=== PATIENT | male | born 1970 | race Caucasian/White ===

== ENCOUNTER 2018-07-08 16:49 | Inpatient (IN) | payer BC ==
[2018-07-08] MEDS ORDERED: Nicotine Inhaler* 10 MG AMP INH PRN (17:39)
[2018-07-08] MEDS ORDERED: Mouth Piece, Nicotine* 1 EACH CARTRIDGE INH PRN (17:47)
--- NOTE | 2018-07-08 17:54 | ED ---
Psychiatric Complaint - HPI Summary HPI Summary: A 48 y/o male presents to [facility] with a chief complaint of SI on 07/08/18. The patient is accompanied by family in the room. He reports holding a gun in his mouth. He is not sure what stopped him from continuing with his plan. He denies HI. He claims that he does not take medicine for his depression. He reports not sleeping well, stating that he barely got an hour of sleep. He also states that he has HTN, but does not take medication. He denies a Hx of DM. He denies visible or auditory hallucinations. He denies seeing a therapist and is unsure what triggered the event today. He report SI in the past with the same plan. He claims that he has been admitted before for previous suicide attempts. - History Of Current Complaint Chief Complaint: EDMentalHealth Time Seen by Provider: 07/08/18 17:23 Hx Obtained From: Patient Onset/Duration: Sudden Onset, Lasting Hours, Still Present Timing: Hours Severity Initially: Severe Severity Currently: Severe Character: Depressed Aggravating Factor(s): Nothing Alleviating Factor(s): Nothing Associated Signs And Symptoms: Positive: Sleep Disturbance. Negative: Hallucinating Related History: Positive For: Prior Psychiatric Issues Has Suicidal: Reports: Thoughts, With A Plan, Demonstrates Gesture, Has Prior Attempt(s) Has Homicidal: Denies: Thoughts - Allergies/Home Medications Allergies/Adverse Reactions: Allergies Allergy/AdvReac Type Severity Reaction Status Date / Time Seasonal Allergies Allergy Congestion Uncoded 07/08/18 16:59 PMH/Surg Hx/FS Hx/Imm Hx Endocrine/Hematology History: Denies: Hx Diabetes, Hx Thyroid Disease Cardiovascular History: Reports: Hx Hypertension Respiratory History: Denies: Hx Asthma, Hx Chronic Obstructive Pulmonary Disease (COPD) GI History: Denies: Hx Ulcer Psychiatric History: Reports: Hx Depression - Surgical History Surgery Procedure, Year, and Place: UMBILICAL HERNIA REPAIR 05/2012. LEFT WRIST SURGERY Infectious Disease History: No Infectious Disease History: Denies: Hx Hepatitis, Hx Human Immunodeficiency Virus (HIV), History Other Infectious Disease, Traveled Outside the [place] in Last 30 Days - Family History Known Family History: Negative: Cardiac Disease, Hypertension, Diabetes, Other - Psychiatric illness - Social History Alcohol Use: None Substance Use Type: Reports: None Smoking Status (MU): Never Smoked Tobacco Review of Systems Negative: Fever Psychological: Other - positive: SI Positive: Depressed. Negative: Other - Negative: HI, hallucinations All Other Systems Reviewed And Are Negative: Yes Physical Exam - Summary Physical Exam Summary: GENERAL: Patient is a well-developed and nourished M who is lying comfortable in the stretcher. Patient is not in any acute respiratory distress. HEAD AND FACE: Normocephalic EYES: PERRLA, EOMI x 2. EARS: Hearing grossly intact. MOUTH: Oropharynx within normal limits. NECK: Supple, trachea is midline, no adenopathy, no JVD, no carotid bruit. CHEST: Symmetric, no tenderness at palpation LUNGS: Clear to auscultation bilaterally. No wheezing or crackles. CVS: Regular rate and rhythm, S1 and S2 present, no murmurs or gallops appreciated. ABDOMEN: Soft, non-tender. Bowel sounds are normal. No abdominal abnormal pulsations. EXTREMITIES: Full ROM in all major joints, no edema, no cyanosis or clubbing. NEURO: Alert and oriented x 3. No acute neurological deficits. Speech is normal and follows commands. SKIN: Dry and warm PSYCH: Sad affect, SI, no HI, No visible or auditory hallucinations Triage Information Reviewed: Yes Vital Signs On Initial Exam: Initial Vitals Temp Pulse Resp BP Pulse Ox 97.8 F 112 18 196/110 98 07/08/18 16:52 07/08/18 16:52 07/08/18 16:52 07/08/18 16:52 07/08/18 16:52 Vital Signs Reviewed: Yes Diagnostics - Vital Signs Vital Signs Temp Pulse Resp BP Pulse Ox 07/08/18 16:52 97.8 F 112 18 196/110 98 - Laboratory Result Diagrams: 07/08/18 17:44 07/08/18 17:44 Lab Statement: Any lab studies that have been ordered have been reviewed, and results considered in the medical decision making process. Re-Evaluation - Re-Evaluation First Eval Re-Evaluation Time: 17:45 Change: Unchanged Comment: Cleared for MHE. Course/Dx - Course Course Of Treatment: A 48 y/o male presents to [facility] with a chief complaint of SI on 07/08/18. He reports holding a gun in his mouth. He is not sure what stopped him from continuing with his plan. Lab results obtained and WNL. In the ED course the patient was given Nicotine INH. The patient has been medically cleared for MHE. Dx: SI. This patient will be signed out to Dr. Weiss at shift change pending MHE. - Differential Dx/Clinical Impression Provider Diagnosis: Suicidal ideation Discharge - Sign-Out/Discharge Documenting (check all that apply): Sign-Out Patient Signing out patient TO: Lukasz Weiss - pending MHE - Discharge Plan Condition: Stable Referrals: No Primary Care Phys,NOPCP [Primary Care Provider] - - Billing Disposition and Condition Condition: STABLE - Attestation Statements Document Initiated by Scribe: Yes Documenting Scribe: William Sevilla Provider For Whom Scribe is Documenting (Include Credential): Fidelina Milligan MD Scribe Attestation: IWilliam scribed for Fidelina Milligan MD on 07/08/18 at 2135. Scribe Documentation Reviewed: Yes Provider Attestation: The documentation as recorded by the William escoto accurately reflects the service I personally performed and the decisions made by me, June Milligan MD Status of Scribe Document: Viewed
[2018-07-08 17:58] LABS: ABS Basophils 0.1 10^3/ul (0-0.2); ABS Eosinophils 0.2 10^3/ul (0-0.6); ABS Lymphocytes 1.1 10^3/ul (1.0-4.8); ABS Monocytes 0.4 10^3/ul (0-0.8); ABS Neutrophils 3.6 10^3/ul (1.5-7.7); ABS Nucleated RBC 0 10^3/ul; Eosinophil % 2.9 %; Hematocrit 47 % (42-52); Hemoglobin 15.6 g/dl (14.0-18.0); Lymphocyte % 20.9 %; Mean Corpuscular HGB Conc 34 g/dl (31-36); Mean Corpuscular Hemoglobin 28 pg (27-31); Mean Corpuscular Volume 83 fL (80-94); Mean Platelet Volume 8.1 fL (7.4-10.4); Nucleated Red Blood Cells % 0; Platelet Count 275 10^3/ul (150-450); Red Blood Count 5.59 10^6/ul (4.00-5.40); Red Cell Distribution Width 14 % (10.5-15); White Blood Count 5.3 10^3/ul (3.5-10.8)
[2018-07-08 18:05] LABS: Urine Appearance Clear; Urine Bilirubin Negative (Negative); Urine Blood Negative (Negative); Urine Color Colorless; Urine Glucose Negative (Negative); Urine Ketones Negative (Negative); Urine Nitrite Negative (Negative); Urine Protein Negative (Negative); Urine Specific Gravity 1.001 (1.010-1.030); Urine Urobilinogen Negative (Negative)
[2018-07-08 18:13] LABS: ALT 21 U/L (7-52); AST 24 U/L (13-39); Albumin 4.4 g/dL (3.2-5.2); Albumin/Globulin Ratio 1.3 (1-3); Alkaline Phosphatase 87 U/L (34-104); Anion Gap 8 mmol/L (2-11); Blood Urea Nitrogen 7 mg/dL (6-24); CO2 Carbon Dioxide 29 mmol/L (22-32); Calcium 9.6 mg/dL (8.6-10.3); Chloride 101 mmol/L (101-111); EGFR Non-African American 92.4 (>60); Globulin 3.3 g/dL (2-4); Glucose 119 mg/dL (70-100); Potassium 3.6 mmol/L (3.5-5.0); Sodium 138 mmol/L (135-145); Total Protein 7.7 g/dL (6.4-8.9)
[2018-07-08 18:22] LABS: Barbiturates Urine Screen None Detected (None Detect); Benzodiazepine Urine Screen None Detected (None Detect); Urine Cannabinoids Screen None Detected (None Detect)
[2018-07-08 18:33] LABS: Acetaminophen < 15 mcg/mL; Alcohol < 10 mg/dL (<10); Salicylate < 2.50 mg/dL (<30)
[2018-07-08 18:47] LABS: TSH (Thyroid Stimulating Horm) 1.22 mcIU/mL (0.34-5.60)
--- NOTE | 2018-07-08 22:11 | ED ---
Progress - Progress Note Progress Note: Receiving sign out from Dr. Milligan, pending MHE. Pt's family requests sleeping medication for the pt. He will be signed out to Dr. Milligan, pending transfer. - EKG/XRAY/CT EKG: nonspecific ST T wave chg Comments: 00:48: Tachycardic 110 bpm, nl axis, nl intervals Course/Dx - Course Course Of Treatment: Nurse's notes reviewed. Patient was signed out to me by Dr. Milligan pending mental health evaluation. Mental health evaluation was performed and it was elected that the patient would require admission. There are no beds here and so transfer arrangements will be made. Expected to transfer during the day shift. Patient is otherwise been stable throughout her shift. He signed back out to the oncoming ER physician who also happens to be Dr. Milligan. - Diagnoses Provider Diagnoses: Depression - Provider Notifications Discussed Care Of Patient With: Leydi Santacruz Time Discussed With Above Provider: 12:22 Instructed by Provider To: Transfer - Patient is an involuntary transfer, since beds are full at [facility] [place]. Discharge - Sign-Out/Discharge Documenting (check all that apply): Sign-Out Patient, Receiving Sign-Out Signing out patient TO: Fidelina Milligan Receiving patient FROM: Fidelina Milligan - Discharge Plan Condition: Fair Disposition: PSYCHIATRIC FACILITY-OTHER Referrals: No Primary Care Phys,NOPCP [Primary Care Provider] - - Billing Disposition and Condition Condition: FAIR Disposition: Psychiatric Facility Other - Attestation Statements Document Initiated by Scribe: Yes Documenting Scribe: Chari Loomis Provider For Whom Scribe is Documenting (Include Credential): Lukasz Weiss MD Scribe Attestation: Chari Yeung, scribed for Lukasz Weiss MD on 07/09/18 at 0405. Scribe Documentation Reviewed: Yes Provider Attestation: The documentation as recorded by the Chari escoto accurately reflects the service I personally performed and the decisions made by , Lukasz Weiss MD Status of Scribe Document: Viewed
[2018-07-09] MEDS ORDERED: traZODone TAB* 50 MG TAB PO ONE (00:31)
--- NOTE | 2018-07-09 07:20 | ED ---
Progress - Progress Note Progress Note: Patient was signed out to Dr. Fidelina Milligan via Dr. Lukasz Weiss, pending MHE and transfer, on shift change on 07/09/2018 at 0700. Home Medications Medication Instructions Recorded Confirmed Type NK [No Home Medications Reported] 12/06/13 07/09/18 History 1349 - SINUS TACHYCARDIA AT 110 BPM, T-WAVE CHANGES IN THE INFERIOR LEADS. - EKG/XRAY/CT EKG: nonspecific ST T wave chg Comments: 00:48: Tachycardic 110 bpm, nl axis, nl intervals - Consult/PCP Time Called: 00:00 Re-Evaluation - Re-Evaluation First Eval Re-Evaluation Time: 17:45 Change: Unchanged Comment: Cleared for MHE. Second Eval Re-Evaluation Time: 13:06 Change: Unchanged Comment: HOSPTIALIST, DR. DEENA GODINEZ CALLED TO INQUIRE ABOUT EKG. WILL ADMIT PATIENT TO [facility] ONCE EKG IS DONE AND CARDIAC WORKUP SINCE THERE IS NO BED AVAILABLE IN TELEMETRY UNIT. SHE WANTS TO RULE OUT PATIENT FOR ADMISSION IN [facility] ED, THEREFORE HE CAN BE TRANSFERRED TO FLEX/PSYCH. Third Eval Re-Evaluation Time: 14:27 Change: Unchanged Comment: SPOKE TO HOSPITALIST, DR. DEENA GODINEZ, WHO RECOMMENDS CHECKING TROPONINS. Fourth Eval Re-Evaluation Time: 19:00 Change: Unchanged Comment: DISCUSSED RESULTS AND PLAN WITH PATIENT. Course/Dx - Course Course Of Treatment: A 48 y/o male accompanied by family presents to the ED c/o suicidal ideation. According to the patient, he held a gun to his mouth, however , he is not sure why he stopped from continuing with his plan to commit suicide. He noted that he is unsure of what triggered his action today (2017). He stated that he has not been sleeping well, has hypertension, and has depression, but does not take any medication whatsoever. He denies any HI or any visual or auditory hallucinations. He has not seen a therapist. PMHx of SI with same plan, no DM. Patient noted that he has been admitted for previous suicidal attempts. Physical examination findings significant for sad affect, SI , no HI, no visible or auditory hallucinations. An EKG completed at 0048 revealed sinus tachycardia of 110 BPM, normal axis, normal intervals. Hematology , Chemistry, urinalysis and toxicology screens were done. No significant laboratory abnormalities were found except for elevated glucose at a value of 119 mg/dL. In the ED course, the patient received Desyrel, Catapres, and Nicotine. After MHE, patient care was discussed with psychiatrist, Dr. Leydi Santacruz, who recommended that patient be transferred, involuntarily due since beds at [facility] are at full capacity. As per settlement technician, pt was cleared by Dr. Leydi Santacruz, [facility], for SI. Patient care was also discussed with Dr. Eliud Awad, who accepted the patient to [facility] as there are beds available at this time. Hospitalist, Dr. Deena Godinez would like the patient to have a cardiac workup at [facility] ED as they do not have a room in the Telemetry Unit. Dr. Godinez would like to rule out patient in the ED so that he can be moved to [facility]. During re-evaluation, the patient exhibited a HR of 140 BPM and BP of 201 /139. Based on this, the patient will need further management. Patient care was discussed with hospitalist, Dr. Kajal Miller, who accepts patient for admission. Case discussed with hospitalist. I discussed results with patient. The patient agrees with this plan. Patient will be admitted with a diagnosis of SI, HTN, and tachycardia. Patient will undergo management under the care of the hospitalist, in which the patient will be moved to [facility] to undergo MHE under the care of Dr. Eliud Awad with a diagnosis of unspecified mood disorder. Patient is agreeable with this plan. - Diagnoses Provider Diagnoses: Suicidal ideations - Provider Notifications Discussed Care Of Patient With: Eliud Awad Time Discussed With Above Provider: 12:45 Instructed by Provider To: Other - ACCEPTS PATIENT FOR ADMISSION. 1900 - DR. KAJAL MILLER ACCEPTS PATIENT FOR ADMISSION. Discharge - Sign-Out/Discharge Documenting (check all that apply): Patient Departure - ADMIT, Sign-Out Patient - PAUL Signing out patient TO: Kajal Miller Receiving patient FROM: Fidelina Milligan - Discharge Plan Condition: Stable Disposition: ADMITTED TO [facility] - Billing Disposition and Condition Condition: STABLE Disposition: Admitted to [facility] - Attestation Statements Document Initiated by Scribe: Yes Documenting Scribe: Micheal Steele Provider For Whom Scribe is Documenting (Include Credential): Fidelina Milligan MD Scribe Attestation: I, Micheal Steele, scribed for Fidelina Milligan MD on 07/11/18 at 0805. Scribe Documentation Reviewed: Yes Provider Attestation: The documentation as recorded by the scribeMicheal accurately reflects the service I personally performed and the decisions made by me, Fidelina Milligan MD Status of Scribe Document: Viewed
[2018-07-09] MEDS ORDERED: cloNIDine TAB* 0.1 MG PO ONE ×2 (08:33→15:57)
[2018-07-09] MEDS ORDERED: cloNIDine TAB* 0.1 MG ONE (08:34)
--- NOTE | 2018-07-09 10:20 | PN ---
ED Flex Patient Progress Note Date of Service: 07/09/18 Subjective: 48 y.o. male presented to ED after an aborted suicide attempt in which he allegedly had a firearm pointed inside his own mouth. Patient cannot contract for safety and his family does not believe he is safe for discharge at this time. Objective: middle aged male in scrubs; minimal eye contact and constricted affect; positive SI Assessment: Unspecified depressive disorder Plan: Patient requires admission but no beds available. Will transfer to [place] [id number] acute inpatient facility. Vital Signs Temp Pulse Resp BP Pulse Ox 98.0 F 98 16 148/106 96 07/09/18 08:29 07/09/18 09:38 07/09/18 08:29 07/09/18 09:38 07/09/18 09:38 Lab Results - Entire Visit 07/08/18 07/08/18 07/08/18 17:44 17:44 17:44 WBC RBC Hgb Hct MCV MCH MCHC RDW Plt Count MPV Neut % (Auto) Lymph % (Auto) [place] % (Auto) Eos % (Auto) Baso % (Auto) Absolute Neuts (auto) Absolute Lymphs (auto) Absolute Monos (auto) Absolute Eos (auto) Absolute Basos (auto) Absolute Nucleated RBC Nucleated RBC % Sodium 138 Potassium 3.6 Chloride 101 Carbon Dioxide 29 Anion Gap 8 BUN 7 Creatinine 0.88 Est GFR ( Amer) 111.8 Est GFR (Non-Af Amer) 92.4 BUN/Creatinine Ratio 8.0 Glucose 119 H Calcium 9.6 Total Bilirubin 0.30 AST 24 ALT 21 Alkaline Phosphatase 87 Total Protein 7.7 Albumin 4.4 Globulin 3.3 Albumin/Globulin Ratio 1.3 TSH 1.22 Urine Color Colorless Urine Appearance Clear Urine pH 7.0 Ur Specific [place] 1.001 L Urine Protein Negative Urine Ketones Negative Urine Blood Negative Urine Nitrate Negative Urine Bilirubin Negative Urine Urobilinogen Negative Ur Leukocyte Esterase Negative Urine Glucose Negative Salicylates < 2.50 Urine Opiates Screen None detected Acetaminophen < 15 Ur Barbiturates Screen None detected Ur Phencyclidine Scrn None detected Ur Amphetamines Screen None detected U Benzodiazepines Scrn None detected Urine Cocaine Screen None detected U Cannabinoids Screen None detected Serum Alcohol < 10 07/08/18 17:44 WBC 5.3 RBC 5.59 H Hgb 15.6 Hct 47 MCV 83 MCH 28 MCHC 34 RDW 14 Plt Count 275 MPV 8.1 Neut % (Auto) 67.0 Lymph % (Auto) 20.9 [place] % (Auto) 7.5 Eos % (Auto) 2.9 Baso % (Auto) 1.7 Absolute Neuts (auto) 3.6 Absolute Lymphs (auto) 1.1 Absolute Monos (auto) 0.4 Absolute Eos (auto) 0.2 Absolute Basos (auto) 0.1 Absolute Nucleated RBC 0 Nucleated RBC % 0 Sodium Potassium Chloride Carbon Dioxide Anion Gap BUN Creatinine Est GFR ( Amer) Est GFR (Non-Af Amer) BUN/Creatinine Ratio Glucose Calcium Total Bilirubin AST ALT Alkaline Phosphatase Total Protein Albumin Globulin Albumin/Globulin Ratio TSH Urine Color Urine Appearance Urine pH Ur Specific [place] Urine Protein Urine Ketones Urine Blood Urine Nitrate Urine Bilirubin Urine Urobilinogen Ur Leukocyte Esterase Urine Glucose Salicylates Urine Opiates Screen Acetaminophen Ur Barbiturates Screen Ur Phencyclidine Scrn Ur Amphetamines Screen U Benzodiazepines Scrn Urine Cocaine Screen U Cannabinoids Screen Serum Alcohol
[2018-07-09] MEDS ORDERED: Acetaminophen TAB* 325 MG PO PRN (12:54)
[2018-07-09] MEDS ORDERED: Al Hydrox/Mg Hydrox/Simet LIQ* 30 ML UDC PO PRN (12:54)
[2018-07-09] MEDS ORDERED: Labetalol IV* 5 MG/ML 20 ML VIAL IV PUSH ONE (19:44)
[2018-07-09] MEDS ORDERED: Metoprolol Tartrate TAB* 25 MG PO ONE ×2 (19:50→23:02)
[2018-07-09] MEDS ORDERED: hydrALAZINE IV* 20 MG/ML VIAL ONE (19:54)
[2018-07-09] MEDS ORDERED: hydrALAZINE IV* 20 MG/ML VIAL IV SLOW PU ONE (19:56)
[2018-07-09] MEDS ORDERED: Diltiazem IV* 5 MG/ML 5 ML VIAL (for loading dose/IV Push) (25 MG) IV SLOW PU ONE (20:09)
[2018-07-09] MEDS: traZODone TAB* 50 MG TAB PO PRN (22:35)
[2018-07-09] MEDS: hydrOXYzine HCL TAB* 50 MG PO PRN (22:35)
[2018-07-09] MEDS: amLODIPine TAB* 5 MG PO SCH (22:35)
--- NOTE | 2018-07-09 23:50 | HP ---
HOSPITAL MEDICINE HISTORY AND PHYSICAL: DATE OF ADMISSION: 07/09/18 PRIMARY CARE PHYSICIAN: None. ATTENDING PHYSICIAN: Dr. Kaylene Blount * (dictation provided by Maryanne Will NP ). CHIEF COMPLAINT: Tachycardia and tachypnea in a patient that presented to the ED with suicidal ideation with plan. HISTORY OF PRESENT ILLNESS: Mr. Kamara is a 48-year-old male with a past medical history of hypertension and hyperlipidemia, though not on medications outpatient as well as admissions to the hospital for suicidal ideation, who presented to the hospital on 07/08/18 with suicidal ideation. Per the report, Mr. Kamara had made statements, which alarmed his family and has reportedly placed a gun in his mouth with plans for suicide. The patient is very withdrawn in the ED, not providing much in the way of details. The plan had been for the patient to be admitted to the mental health unit; however, the bed was unavailable and he has been awaiting admission there since yesterday at 1748 and has been in the ED for 27 hours. The patient was about to be transitioned to the mental health unit when it was noted that his heart rate was quite elevated. His heart rate has been running 110 to 130 since admission. His blood pressure has been running 140s to 210s. He denies any complaint. He has no chest pain, no shortness of breath. No nausea, vomiting, diarrhea, or abdominal pain. He denies any untoward ingestions. He denies any alcohol abuse at home. He states he has been prescribed medications for blood pressure in the past, but he is not taking them at this time recently. In the ED, the patient was given 2 doses of clonidine earlier today, but again continues to have uncontrolled tachycardia and hypertension. PAST MEDICAL HISTORY: 1. Suicidal ideation with plan and admission to hospital. 2. Hypertension. 3. Hyperlipidemia. MEDICATIONS: Medications as outpatient, none. FAMILY HISTORY: Reviewed and noncontributory. SOCIAL HISTORY: No report of alcohol, tobacco, or drug use. REVIEW OF SYSTEMS: A 14-point review of systems was completed with Mr. Kamara and all those not mentioned were negative. PHYSICAL EXAMINATION GENERAL: Mr. Kamara is sitting in the bed. He is withdrawn, but interacts appropriately. His family is at the bedside. VITAL SIGNS: Temperature 98, pulse rate 129, respiratory rate 23, O2 saturation 94% on room air, and blood pressure 183/129. LUNGS: Clear to auscultation bilaterally with no accessory muscle use and good aeration. HEART: S1, S2 and rapid, but regular. ABDOMEN: Soft and nontender with bowel sounds positive x4. EXTREMITIES: No cyanosis or edema. SKIN: Intact. DIAGNOSTIC STUDIES/LAB DATA: WBC 5.3, hemoglobin 15.6, hematocrit 47, platelet count 275. Sodium 138, potassium 3.6, chloride 101, serum bicarbonate 29, BUN 7, creatinine 0.88, glucose 119. Troponin 0.00, repeat was also 0.01. TSH is 1.22. Urine shows no infection. The drug screen was negative. His alcohol level less than 10. ASSESSMENT: Mr. Kamara is a 48-year-old male with a past medical history of suicidal ideation, hypertension, hyperlipidemia and not on any medications outpatient, who presented to the hospital on 07/08/18 with concern for suicidal ideation with plans for admission to the mental health unit; however, the patient has been noted to have uncontrolled hypertension and tachycardia, and therefore, plans are for observation in the hospital for the followin. Hypertension: The patient has been on blood pressure medications outpatient , but states he has not taken them for some time. He has been hypertensive since arrival to the ED despite a couple of doses of clonidine. Plan is now for metoprolol x1. I had initially thought of giving labetalol, but that is not available in the formulary at this point; therefore, we will try diltiazem IV slow push x1. Hopefully, his blood pressure will be better controlled so that he can avoid going to the intensive care unit tonight; however, if his blood pressure remains elevated, we will need to admit him there for a drip of antihypertensive such as nicardipine or diltiazem. If his blood pressure is controlled, we will continue oral medications. 2. Tachycardia. I suspect this is all stress, cortisol and adrenal driven. The patient's TSH is normal. He has no evidence of infection. He denies any alcohol or other ingestion, although this certainly is a possibility. It does not seem to be supported by his family either, who do not think that he does drink or do any illicit drugs. Again, we will seek to treat his blood pressure with medications that will also blunt this tachycardia as well. He shows no evidence of dehydration. 3. Question of hyperlipidemia. Plan to check a lipid profile tomorrow. The patient was on a cholesterol medication in the past. 4. Suicidal ideation. The patient will need to be on a one-to-one due to suicide ideation with plan, household appliances salesperson is aware. 5. DVT prophylaxis with early mobility. 6. Code status is full code. TIME SPENT: Approximately 60 minutes was spent on this admission of this patient, more than half the time spent with the patient at the bedside reviewing the events leading up to this hospitalization, performing the physical examination, and reviewing my plan of care. MARYANNE WILL NP [id number]/CPS #: [id number] DIANA
[2018-07-10 05:44] LABS: HDL Cholesterol 44.1 mg/dL
[2018-07-10] MEDS: amLODIPine TAB* 5 MG PO SCH (07:55)
[2018-07-10] MEDS ORDERED: Metoprolol Tartrate TAB* 25 MG PO ONE ×2 (09:01→13:09)
--- NOTE | 2018-07-10 10:10 | PN ---
Subjective Date of Service: 07/10/18 Interval History: Mr. Kamara is feeling ok this morning. He slept well overnight. Reports that he felt some fluttering feelings in his chest yesterday, though those have resolved. He denies headache or dizziness. Has been on antihypertensives in the past, but is not sure what he was on - possibly amlodipine. Understands that plan is for admission to MHU once medically cleared. Good appetite. Denies CP, SOB, N/V/D. Family History: Unchanged from Admission Social History: Unchanged from Admission Past Medical History: Unchanged from Admission Objective Active Medications: Acetaminophen (Tylenol Tab*) 650 mg PO Q4H PRN for pain; or Temp >101 F Al Hydrox/Mg Hydrox/Simethicone (Maalox Plus*) 30 ml PO Q4H PRN INDIGESTION Amlodipine Besylate (Norvasc Tab*) 5 mg PO DAILY AKIL Device (Nicotine Mouth Piece*) 1 each INH Q2H PRN CRAVINGS Hydralazine HCl (Apresoline Iv*) 5 mg IV SLOW PU Q6H PRN BLOOD PRESSURE Hydroxyzine HCl (Atarax Tab*) 50 mg PO Q6H PRN ANXIETY Nicotine (Nicotine Inhaler*) 10 mg INH Q2H PRN CRAVING Trazodone HCl (Desyrel Tab*) 50 mg PO BEDTIME PRN INSOMNIA Vital Signs - 8 hr 07/10/18 07/10/18 07/10/18 03:30 07:24 07:56 Temperature 98.6 F 97.6 F Pulse Rate 92 114 Respiratory 16 16 Rate Blood Pressure 144/89 179/111 138/100 (mmHg) O2 Sat by Pulse 95 97 Oximetry Oxygen Devices in Use Now: None Appearance: Middle-aged male sitting in bed in NAD; flat affect Eyes: No Scleral Icterus Ears/Nose/Mouth/Throat: Mucous Membranes Moist Neck: NL Appearance and Movements; NL JVP, Trachea Midline Respiratory: Symmetrical Chest Expansion and Respiratory Effort, Clear to Auscultation Cardiovascular: NL Sounds; No Murmurs; No JVD, - - Regular, tachycardic Abdominal: NL Sounds; No Tenderness; No Distention Extremities: No Edema Skin: No Rash or Ulcers Neurological: Alert and Oriented x 3, NL Muscle Strength and Tone Lines/Tubes/Other Access: Clean, Dry and Intact Peripheral IV Nutrition: Taking PO's Result Diagrams: 07/08/18 17:44 07/08/18 17:44 Assess/Plan/Problems-Billing Assessment: Mr. Kamara is a 48 yo M with PMH of HTN and HLD who presented to the ED on 07/08 with suicidal ideations with plans and had been in [facility] awaiting a MHU when he was noted to by hypertensive and tachycardic and was therefore admitted for hypertensive urgency. - Patient Problems (1) Hypertensive urgency Code(s): I16.0 - HYPERTENSIVE URGENCY Comment: - With SBP up to 200 and DBP up to 130; asymptomatic - Not on outpatient medication - Somewhat responsive to IV diltiazem and amlodipine - Continue amlodipine; start metoprolol (2) Tachycardia Code(s): R00.0 - TACHYCARDIA, UNSPECIFIED Comment: - Asymptomatic - TSH normal; negative trops x3 - Suspect this is secondary to stress and elevated cortisol - HR down into the 90s overnight, now back 110-140s - Start metoprolol (3) Suicidal ideations Code(s): R45.851 - SUICIDAL IDEATIONS Comment: - With plans; reportedly with a gun - Continue 1:1 - Management per Psych - Plans for transfer to MHU when medically stable (4) Hyperlipidemia Code(s): E78.5 - HYPERLIPIDEMIA, UNSPECIFIED Comment: - Lipids panel this morning shows good control - According to ASCVD risk algorithm, 2.9% risk in 10 years, so statin is not indicated (5) DVT prophylaxis Comment: - Ambulation (6) Full code status Code(s): Z78.9 - OTHER SPECIFIED HEALTH STATUS Comment: Status and Disposition: Observation for continued hypertension and tachycardia. Discharge to MHU when medically clear. Attending: Keke Abraham
[2018-07-10] MEDS: hydrALAZINE IV* 20 MG/ML VIAL IV SLOW PU PRN (15:22)
[2018-07-10] MEDS: Diltiazem TAB* 30 MG PO SCH (17:45)
[2018-07-10] MEDS: hydrOXYzine HCL TAB* 50 MG PO PRN (19:12)
[2018-07-11] MEDS: Diltiazem TAB* 30 MG PO SCH ×2 (00:14→05:03)
[2018-07-11] MEDS: traZODone TAB* 50 MG TAB PO PRN (00:14)
[2018-07-11] MEDS: hydrOXYzine HCL TAB* 50 MG PO PRN ×2 (05:03→12:21)
[2018-07-11] MEDS: hydrALAZINE IV* 20 MG/ML VIAL IV SLOW PU PRN (05:03)
[2018-07-11] MEDS: amLODIPine TAB* 5 MG PO SCH (08:00)
[2018-07-11] MEDS ORDERED: amLODIPine TAB* 5 MG PO ONE ×2 (09:00→10:00)
[2018-07-11] MEDS: Lisinopril TAB* 10 MG PO SCH (09:48)
[2018-07-11] MEDS: Diltiazem TAB* 60 MG PO SCH ×3 (12:21→23:31)
[2018-07-11] MEDS ORDERED: LORazepam INJ* 2 MG/ML 1 ML VIAL IV PUSH ONE (12:35)
[2018-07-11] MEDS ORDERED: Iohexol 350* (CONTRAST) 500 ML MDV IV SCH (13:23)
[2018-07-11 14:23] LABS: BUN/Creatinine Ratio 13.1 (8-20); EGFR Non-African American 48.8 (>60); Magnesium 2.1 mg/dL (1.9-2.7); Potassium 4.2 mmol/L (3.5-5.0)
[2018-07-11] MEDS ORDERED: NS 0.9% 1000 ML* 1,000 ML IV SCH (14:45)
--- NOTE | 2018-07-11 15:21 | PN ---
Subjective Date of Service: 07/11/18 Interval History: Mr. Kamara is feeling ok today. He offers no complaints and is not particularly interested in speaking with me. He denies CP, SOB, N/V/D, dizziness. Per nursing , he does c/o anxiety, though he denied this on my exam. Nursing also reports that he is not eating or drinking much. Family History: Unchanged from Admission Social History: Unchanged from Admission Past Medical History: Unchanged from Admission Objective Active Medications: Acetaminophen (Tylenol Tab*) 650 mg PO Q4H PRN for pain; or Temp >101 F Al Hydrox/Mg Hydrox/Simethicone (Maalox Plus*) 30 ml PO Q4H PRN INDIGESTION Amlodipine Besylate (Norvasc Tab*) 10 mg PO DAILY AKIL Device (Nicotine Mouth Piece*) 1 each INH Q2H PRN CRAVINGS Diltiazem HCl (Cardizem Tab*) 60 mg PO Q6HR AKIL Hydralazine HCl (Apresoline Iv*) 5 mg IV SLOW PU Q6H PRN BLOOD PRESSURE Hydroxyzine HCl (Atarax Tab*) 50 mg PO Q6H PRN ANXIETY Sodium Chloride (Ns 0.9% 1000 Ml*) 1,000 mls @ 150 mls/hr IV PER RATE AKIL Iohexol (Omnipaque 350 (Contrast)-) 69 ml IV ONCE AKIL Lisinopril (Prinivil Tab*) 10 mg PO DAILY AKIL Lorazepam (Ativan Tab(*)) 0.5 mg PO TID AKIL Nicotine (Nicotine Inhaler*) 10 mg INH Q2H PRN CRAVING Trazodone HCl (Desyrel Tab*) 50 mg PO BEDTIME PRN INSOMNIA Vital Signs - 8 hr 07/11/18 07/11/18 07/11/18 11:02 12:17 12:42 Temperature 98.5 F Pulse Rate 154 168 Respiratory 16 20 Rate Blood Pressure 153/112 (mmHg) O2 Sat by Pulse 97 Oximetry Oxygen Devices in Use Now: None Appearance: Middle-aged male sitting in bed in NAD; Apathetic; Flat affect Eyes: No Scleral Icterus Ears/Nose/Mouth/Throat: Mucous Membranes Moist Neck: NL Appearance and Movements; NL JVP, Trachea Midline Respiratory: Symmetrical Chest Expansion and Respiratory Effort, Clear to Auscultation Cardiovascular: NL Sounds; No Murmurs; No JVD, RRR Abdominal: NL Sounds; No Tenderness; No Distention Extremities: No Edema Skin: No Rash or Ulcers Neurological: Alert and Oriented x 3, NL Gait Lines/Tubes/Other Access: Clean, Dry and Intact Peripheral IV Nutrition: Taking PO's Result Diagrams: 07/08/18 17:44 07/11/18 13:49 Assess/Plan/Problems-Billing Assessment: Mr. Kamara is a 48 yo M with PMH of HTN and HLD who presented to the ED on 07/08 with suicidal ideations with plans and had been in [facility] awaiting a MHU when he was noted to by hypertensive and tachycardic and was therefore admitted for hypertensive urgency. - Patient Problems (1) Hypertensive urgency Code(s): I16.0 - HYPERTENSIVE URGENCY Comment: - With SBP up to 200 and DBP up to 130 in the ED; today, SBP 150-190s and DBP 110s - Remains asymptomatic - Not on outpatient medication - Very resistant to medication - Continue amlodipine and diltiazem at increased doses; start lisinopril (2) Tachycardia Code(s): R00.0 - TACHYCARDIA, UNSPECIFIED Comment: - HR down into the 90s overnight, now back 110-170s; asymptomatic - TSH normal; negative trops x3; no EKG changes; electrolytes WNL - Suspect this is secondary to stress and elevated cortisol - Creatinine elevated today, so dehydration may be a contributing factor - Will check CTA to r/o PE, though this remains low on the differential - Continue diltiazem; start lorazepam TID (3) Suicidal ideations Code(s): R45.851 - SUICIDAL IDEATIONS Comment: - With plans, reportedly with a gun - Continue 1:1 - Appreciate Psych consult - Plans for transfer to MHU when medically stable (4) Hyperlipidemia Code(s): E78.5 - HYPERLIPIDEMIA, UNSPECIFIED Comment: - Lipids panel this morning shows good control - According to ASCVD risk algorithm, 2.9% risk in 10 years, so statin is not indicated (5) DVT prophylaxis Comment: - Ambulation (6) Full code status Code(s): Z78.9 - OTHER SPECIFIED HEALTH STATUS Comment: Status and Disposition: Observation for resistant hypertension and tachycardia. Discharge to MHU when medically clear. Attending: Danielle Whittaker
[2018-07-11] MEDS ORDERED: LORazepam TAB(*) 0.5 MG PO SCH (21:00)
[2018-07-11] MEDS: LORazepam TAB(*) 0.5 MG PO SCH (21:09)
[2018-07-12] MEDS: Diltiazem TAB* 60 MG PO SCH ×2 (05:14→12:12)
[2018-07-12] MEDS: Lisinopril TAB* 10 MG PO SCH (08:27)
[2018-07-12] MEDS: LORazepam TAB(*) 0.5 MG PO SCH ×2 (08:27→14:49)
[2018-07-12 08:53] LABS: BUN/Creatinine Ratio 20.2 (8-20); Calcium 9.4 mg/dL (8.6-10.3); EGFR Non-African American 80.7 (>60); Potassium 4.1 mmol/L (3.5-5.0)
[2018-07-12] MEDS ORDERED: amLODIPine TAB* 5 MG PO SCH ×2 (09:00)
[2018-07-12 13:29] VITALS: BP 153/97
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
[2018-07-12] MEDS ORDERED: Metoprolol Tartrate TAB* 25 MG PO PRN (13:44)
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
[2018-07-13] MEDS ORDERED: Diltiazem CD CAP* 240 MG PO SCH (09:00)
== END 2018-07-12 15:20 | DRG 199 ==
LOC: ED 16:49 → BSU 07-09 12:54 → UNDOADMIN 07-09 12:54 → MEDTELE 07-09 20:41 → OBSVTOIN 07-11 16:52
PROVIDERS: ADMIT Internal Medicine; ATTEND Internal Medicine
DX: I16.0 Hypertensive urgency (principal); R45.851 Suicidal ideations; I10 Essential (primary) hypertension; F32.9 Major depressive disorder, single episode, unspecified; J30.2 Other seasonal allergic rhinitis; E78.5 Hyperlipidemia, unspecified; R00.0 Tachycardia, unspecified
CPT/HCPCS: 36415; 71275; 80048; 80053; 80061; 80307; 80320; 80329; 81003; 83036; 83735; 84443; 84484; 85025; 93005; 99284; A9270-GY; G0378; G0480; J0360; J2060; Q9967

== ENCOUNTER 2018-07-12 13:41 | Inpatient (IN) | payer BC ==
[2018-07-12] MEDS ORDERED: traZODone TAB* 50 MG TAB PO PRN (18:02)
[2018-07-12] MEDS ORDERED: Al Hydrox/Mg Hydrox/Simet LIQ* 30 ML UDC PO PRN (18:02)
[2018-07-12] MEDS ORDERED: hydrOXYzine HCL TAB* 50 MG PO PRN (18:02)
[2018-07-12] MEDS ORDERED: Metoprolol Tartrate TAB* 25 MG PO PRN (18:04)
[2018-07-12] MEDS: LORazepam TAB(*) 0.5 MG PO SCH (21:39)
[2018-07-12] MEDS: Rivaroxaban TAB(*) 15 MG PO SCH (21:40)
[2018-07-13] MEDS: amLODIPine TAB* 5 MG PO SCH (10:45)
[2018-07-13] MEDS: Lisinopril TAB* 10 MG PO SCH (10:45)
[2018-07-13] MEDS: LORazepam TAB(*) 0.5 MG PO SCH ×3 (10:46→21:38)
[2018-07-13] MEDS: Rivaroxaban TAB(*) 15 MG PO SCH ×2 (10:46→21:37)
[2018-07-13] MEDS: Diltiazem CD CAP* 240 MG PO SCH (10:46)
[2018-07-13] MEDS: DULoxetine DR CAP* 20 MG CAP.DR PO SCH (14:34)
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
--- NOTE | 2018-07-13 17:46 | PN ---
Subjective Date of Service: 07/13/18 Interval History: Patient seen and examined, remains flat, per nurse, patient has not left room all day. He denies any SOB, no palpitations, no headache or dizziness. Objective Active Medications: Al Hydrox/Mg Hydrox/Simethicone (Maalox Plus*) 30 ml PO Q4H PRN PRN Reason: INDIGESTION Amlodipine Besylate (Norvasc Tab*) 10 mg PO DAILY [facility] Last Admin: 07/13/18 10:45 Dose: 10 mg Aripiprazole (Abilify Tab*) 10 mg PO BEDTIME [facility] Diltiazem HCl (Cardizem Cd Cap*) 240 mg PO DAILY [facility] Last Admin: 07/13/18 10:46 Dose: 240 mg Duloxetine HCl (Cymbalta Cap*) 40 mg PO DAILY [facility] Last Admin: 07/13/18 14:34 Dose: 40 mg Hydroxyzine HCl (Atarax Tab*) 50 mg PO Q6H PRN PRN Reason: ANXIETY Lisinopril (Prinivil Tab*) 10 mg PO DAILY [facility] Last Admin: 07/13/18 10:45 Dose: 10 mg Lorazepam (Ativan Tab(*)) 0.25 mg PO TID [facility] Last Admin: 07/13/18 14:33 Dose: 0.25 mg Metoprolol Tartrate (Lopressor Tab*) 12.5 mg PO Q12HR PRN PRN Reason: HR>110 or SPB>170 or DBP>95 Rivaroxaban (Xarelto(*)) 15 mg PO BID [facility] Stop: 08/02/18 21:01 Last Admin: 07/13/18 10:46 Dose: 15 mg Trazodone HCl (Desyrel Tab*) 50 mg PO BEDTIME PRN PRN Reason: INSOMNIA Vital Signs - 8 hr 07/13/18 07/13/18 07/13/18 10:46 13:00 14:33 Respiratory 16 16 16 Rate 07/13/18 16:15 Respiratory 17 Rate Oxygen Devices in Use Now: None Appearance: alert, NAD Eyes: No Scleral Icterus, PERRLA Ears/Nose/Mouth/Throat: NL Teeth, Lips, Gums, Clear Oropharnyx, Mucous Membranes Moist Neck: Trachea Midline Respiratory: Symmetrical Chest Expansion and Respiratory Effort, Clear to Auscultation Cardiovascular: NL Sounds; No Murmurs; No JVD, RRR Neurological: Alert and Oriented x 3, NL Gait Nutrition: Taking PO's Assess/Plan/Problems-Billing Assessment: This is a 48 year old male with recent suicidal ideations, being followed by medicine for HTN managment and newly diagnosed PE. - Patient Problems (1) Pulmonary embolism Code(s): I26.99 - OTHER PULMONARY EMBOLISM WITHOUT ACUTE COR PULMONALE SNOMED Code(s): 93536196 Comment: - Unprovoked - Small filling defect noted on CTA - Xarelto started yesterday, will need 15mg BID x 21 days, then maintenance dose - Stable (2) Suicidal ideations Code(s): R45.851 - SUICIDAL IDEATIONS SNOMED Code(s): 0965191 Comment: - Plan and medication managment as per [facility] (3) Hypertensive urgency Code(s): I16.0 - HYPERTENSIVE URGENCY SNOMED Code(s): 270946902 Comment: - Resolved, BP still mildly high but much improved - Continue amlodipine, diltiazem and lisinopril - Metoprolol PRN (parameters ordered) (4) Tachycardia Code(s): R00.0 - TACHYCARDIA, UNSPECIFIED SNOMED Code(s): 0861136 Comment: - HR has stabilized, tachycardia may be attributed to acute anxiety in combination with PE - Lorazapam TID, metoprolol PRN (5) Full code status Code(s): Z78.9 - OTHER SPECIFIED HEALTH STATUS SNOMED Code(s): 282426296 Comment: Status and Disposition: Inpatient [facility]. Dispo TBD. Recommend patient to be followed at [facility] after DC from [facility] to monitor BP and anticoagulation.
[2018-07-13] MEDS: ARIPiprazole TAB* 5 MG PO SCH (21:36)
[2018-07-14] MEDS: DULoxetine DR CAP* 20 MG CAP.DR PO SCH (09:31)
[2018-07-14] MEDS: Rivaroxaban TAB(*) 15 MG PO SCH ×2 (09:32→21:26)
[2018-07-14] MEDS: amLODIPine TAB* 5 MG PO SCH (09:32)
[2018-07-14] MEDS: Lisinopril TAB* 10 MG PO SCH (09:33)
[2018-07-14] MEDS: LORazepam TAB(*) 0.5 MG PO SCH ×3 (09:34→21:27)
[2018-07-14] MEDS: Diltiazem CD CAP* 240 MG PO SCH (09:34)
--- NOTE | 2018-07-14 13:36 | PN ---
Progress Note - Progress Note Date of Service: 07/14/18 Note: Vitals reviewed. Plan to increase metoprolol and change from prn to standing dose due to tachycardia and hypertensive (primarily diastolic). Will re- evaluate in AM.
[2018-07-14] MEDS: Metoprolol Tartrate TAB* 50 mg PO SCH ×2 (14:46→21:26)
--- NOTE | 2018-07-14 17:38 | PN ---
Subjective - Subjective Date of Service: 07/14/18 Service Type: [id number] Hosp care 15 min low complexity Subjective: Naman has been quietly standing in the day room but responded readily to all inquiries with occasional long pause. Says he wasn't really suicidal today like the day of his admission. Somewhat hopeful that things are going to be fine. Happy to be alive. Internally occupied but denies hallucinations or delusions. Objective - Appearance Appearance: Healthy Appearing, Obese Dysmorphic Features: No Hygiene: Normal Grooming: Disheveled - Behavior Psychomotor Activities: Abnormal-Decreased Exhibits Abnormal Movement: No - Attitude and Relatedness Attitude and Relatedness: Cooperative Eye Contact: Good - Speech Quality: Unpressured Latencies: Long Quantity: Terse - Mood Patient's Decription of Mood: "Okay" - Affect Observed Affect: Depressed Affect Consistent with: Dysphoria - Thought Process Patient's Thought Process: Coherent Thought Content: No Passive Wish, No Suicidal Planning, No Homicidal Ideation, No Paranoid Ideation - Sensorium Experiencing Hallucinations: No, Sensorium is Clear Type of Hallucinations: Visual: No, Auditory: No, Command: No - Level of Consciousness Level of Consciousness: Alert Orientation: Yes Intact, Yes Orientated to Time, Yes Orientated to Place, Yes Orientated to Person - Impulse Control Impulse Control: Tenuous - Insight and Judgement Insight and Judgement: Poor - Group Participation Particating in Group Activities: No - Medication Management Medication Management Adherence: Yes Assessment - Assessment Merits Inpatient Hospitalization: For Immediate Safety, For Stabilization, Pending Safe DC Plan Plan - Plan Treatment Plan: Name: NAMAN POLANCO Birthdate: 1970 [id number] Continued Medication Management: Continue Outpt Medication Medications: Current Medications Al Hydrox/Mg Hydrox/Simethicone (Maalox Plus*) 30 ml PO Q4H PRN PRN Reason: INDIGESTION Amlodipine Besylate (Norvasc Tab*) 10 mg PO DAILY [facility] Last Admin: 07/14/18 09:32 Dose: 10 mg Aripiprazole (Abilify Tab*) 10 mg PO BEDTIME [facility] Last Admin: 07/13/18 21:36 Dose: 10 mg Diltiazem HCl (Cardizem Cd Cap*) 240 mg PO DAILY [facility] Last Admin: 07/14/18 09:34 Dose: 240 mg Duloxetine HCl (Cymbalta Cap*) 40 mg PO DAILY [facility] Last Admin: 07/14/18 09:31 Dose: 40 mg Hydroxyzine HCl (Atarax Tab*) 50 mg PO Q6H PRN PRN Reason: ANXIETY Lisinopril (Prinivil Tab*) 10 mg PO DAILY [facility] Last Admin: 07/14/18 09:33 Dose: 10 mg Lorazepam (Ativan Tab(*)) 0.25 mg PO TID [facility] Last Admin: 07/14/18 14:46 Dose: 0.25 mg Metoprolol Tartrate (Lopressor Tab*) 50 mg PO Q12HR [facility] Last Admin: 07/14/18 14:46 Dose: 50 mg Rivaroxaban (Xarelto(*)) 15 mg PO BID [facility] Stop: 08/02/18 21:01 Last Admin: 07/14/18 09:32 Dose: 15 mg Trazodone HCl (Desyrel Tab*) 50 mg PO BEDTIME PRN PRN Reason: INSOMNIA - Discharge Plan Discharge Plan: Outpatient Follow Up Outpatient Program: [facility]
[2018-07-14] MEDS: ARIPiprazole TAB* 5 MG PO SCH (21:26)
[2018-07-15] MEDS: Lisinopril TAB* 10 MG PO SCH (11:56)
[2018-07-15] MEDS: Rivaroxaban TAB(*) 15 MG PO SCH ×2 (11:56→20:55)
[2018-07-15] MEDS: amLODIPine TAB* 5 MG PO SCH (11:57)
[2018-07-15] MEDS: Metoprolol Tartrate TAB* 50 mg PO SCH ×2 (11:58→20:51)
[2018-07-15] MEDS: Diltiazem CD CAP* 240 MG PO SCH (11:58)
[2018-07-15] MEDS: DULoxetine DR CAP* 20 MG CAP.DR PO SCH (11:58)
[2018-07-15] MEDS: LORazepam TAB(*) 0.5 MG PO SCH ×3 (11:59→20:53)
[2018-07-15] MEDS: ARIPiprazole TAB* 5 MG PO SCH (20:51)
[2018-07-16] MEDS: Lisinopril TAB* 10 MG PO SCH (09:14)
[2018-07-16] MEDS: amLODIPine TAB* 5 MG PO SCH (09:14)
[2018-07-16] MEDS: LORazepam TAB(*) 0.5 MG PO SCH (09:14)
[2018-07-16] MEDS: DULoxetine DR CAP* 20 MG CAP.DR PO SCH (09:14)
[2018-07-16] MEDS: Metoprolol Tartrate TAB* 50 mg PO SCH ×2 (09:14→21:03)
[2018-07-16] MEDS: Rivaroxaban TAB(*) 15 MG PO SCH ×2 (09:15→21:03)
[2018-07-16] MEDS: Diltiazem CD CAP* 240 MG PO SCH (09:15)
--- NOTE | 2018-07-16 12:39 | PN ---
Subjective - Subjective Date of Service: 07/16/18 Service Type: 47108 Hosp care 15 min low complexity Subjective: Naman is feeling better and answers questions more readily, although he remains isolative and slow to respond. He is tolerating his medications well and has no acute complaints at this time. Family has been visiting and feel he is improving, although not yet at baseline. Patient encouraged to attend groups and interact more. Denies SI or HI. Objective - Appearance Appearance: Well Developed/Nourished Dysmorphic Features: No Hygiene: Normal Grooming: Fairly Well Kept - Behavior Psychomotor Activities: Abnormal-Decreased Exhibits Abnormal Movement: No - Attitude and Relatedness Attitude and Relatedness: Guarded Eye Contact: Fair - Speech Quality: Unpressured Latencies: Long Quantity: Terse - Mood Patient's Decription of Mood: "Okay" - Affect Observed Affect: Constricted Affect Consistent with: Dysphoria - Thought Process Patient's Thought Process: Impoverished Thought Content: Yes Paranoid Ideation, No Passive Wish, No Suicidal Planning, No Homicidal Ideation - Sensorium Experiencing Hallucinations: No, Sensorium is Clear Type of Hallucinations: Visual: No, Auditory: No, Command: No - Level of Consciousness Level of Consciousness: Alert Orientation: Yes Intact, Yes Orientated to Time, Yes Orientated to Place, Yes Orientated to Person - Impulse Control Impulse Control: Tenuous - Insight and Judgement Insight and Judgement: Fair - Group Participation Particating in Group Activities: No - Medication Management Medication Management Adherence: Yes Assessment - Assessment Merits Inpatient Hospitalization: For Immediate Safety, For Stabilization Inpatient DSM-V Dx: F33.3 Clinical Impression: 48 y.o. single, never , employed, white male with a history of recurrent psychotic depression who has been off medications and out of treatment for several years, transferred from the hospitalist service following medical stabilization of malignant hypertension and acute pulmonary embolus, now being treated for psychosis, depressed mood and suicidal ideation with stated plan to shoot himself with his own shotgun. MHU: Problem List - Patient Problems (1) Severe recurrent major depressive disorder with psychosis Current Visit: Yes Status: Acute Code(s): F33.3 - MAJOR DEPRESSV DISORDER, RECURRENT, SEVERE W PSYCH SYMPTOMS SNOMED Code(s): 341783202 Plan - Plan Treatment Plan: Name: NAMAN POLANCO Birthdate: 1970 [id number] The patient is restarted on aripiprazole 10mg PO qhs and duloxetine 40mg PO qday. Will increase these to 15 and 60mg respectively. Hospitalist service is following for HTN and PE issues. Continue to treat on an inpatient basis. Continued Medication Management: Start Medication Medications: Current Medications Al Hydrox/Mg Hydrox/Simethicone (Maalox Plus*) 30 ml PO Q4H PRN PRN Reason: INDIGESTION Amlodipine Besylate (Norvasc Tab*) 10 mg PO DAILY [facility] Last Admin: 07/16/18 09:14 Dose: 10 mg Aripiprazole (Abilify Tab*) 15 mg PO BEDTIME [facility] Diltiazem HCl (Cardizem Cd Cap*) 240 mg PO DAILY [facility] Last Admin: 07/16/18 09:15 Dose: 240 mg Duloxetine HCl (Cymbalta Cap*) 60 mg PO DAILY [facility] Hydroxyzine HCl (Atarax Tab*) 50 mg PO Q6H PRN PRN Reason: ANXIETY Lisinopril (Prinivil Tab*) 10 mg PO DAILY [facility] Last Admin: 07/16/18 09:14 Dose: 10 mg Metoprolol Tartrate (Lopressor Tab*) 50 mg PO Q12HR [facility] Last Admin: 07/16/18 09:14 Dose: 50 mg Rivaroxaban (Xarelto(*)) 15 mg PO BID [facility] Stop: 08/02/18 21:01 Last Admin: 07/16/18 09:15 Dose: 15 mg Trazodone HCl (Desyrel Tab*) 50 mg PO BEDTIME PRN PRN Reason: INSOMNIA - Discharge Plan Discharge Plan: Inpatient Hospitalization
--- NOTE | 2018-07-16 13:54 | PN ---
Progress Note - Progress Note Date of Service: 07/16/18 Note: Patient's blood pressure is well controlled and he is no longer tachycardic on his current regimen. Hospital Medicine will sign off for now, but please do not hesitate to contact us with any further questions or concerns.
[2018-07-16] MEDS: ARIPiprazole TAB* 15 MG PO SCH (21:03)
[2018-07-17] MEDS: Diltiazem CD CAP* 240 MG PO SCH (09:52)
[2018-07-17] MEDS: Lisinopril TAB* 10 MG PO SCH (09:52)
[2018-07-17] MEDS: DULoxetine DR CAP* 60 MG CAP.DR PO SCH (09:52)
[2018-07-17] MEDS: amLODIPine TAB* 5 MG PO SCH (09:53)
[2018-07-17] MEDS: Rivaroxaban TAB(*) 15 MG PO SCH ×2 (09:53→21:01)
[2018-07-17] MEDS: Metoprolol Tartrate TAB* 50 mg PO SCH ×2 (09:54→21:01)
--- NOTE | 2018-07-17 11:49 | PN ---
Subjective - Subjective Date of Service: 07/17/18 Service Type: [id number] Hosp care 15 min low complexity Subjective: Naman continues to improve both medically and psychiatrically. He is encouraged to start participating more in groups and other milieu activities. He denies SI or HI. Objective - Appearance Appearance: Well Developed/Nourished Dysmorphic Features: No Hygiene: Normal Grooming: Well Kept - Behavior Psychomotor Activities: Normal Exhibits Abnormal Movement: No - Attitude and Relatedness Attitude and Relatedness: Cooperative Eye Contact: Good - Speech Quality: Unpressured Latencies: Normal Quantity: Terse - Mood Patient's Decription of Mood: "Okay" - Affect Observed Affect: Fair Affect Consistent with: Euthymia - Thought Process Patient's Thought Process: Coherent Thought Content: No Passive Wish, No Suicidal Planning, No Homicidal Ideation, No Paranoid Ideation - Sensorium Experiencing Hallucinations: No, Sensorium is Clear Type of Hallucinations: Visual: No, Auditory: No, Command: No - Level of Consciousness Level of Consciousness: Alert Orientation: Yes Intact, Yes Orientated to Time, Yes Orientated to Place, Yes Orientated to Person - Impulse Control Impulse Control: Tenuous - Insight and Judgement Insight and Judgement: Fair - Group Participation Particating in Group Activities: No - Medication Management Medication Management Adherence: Yes Assessment - Assessment Merits Inpatient Hospitalization: For Immediate Safety, For Stabilization Inpatient DSM-V Dx: F33.3 Clinical Impression: 48 y.o. single, never , employed, white male with a history of recurrent psychotic depression who has been off medications and out of treatment for several years, transferred from the hospitalist service following medical stabilization of malignant hypertension and acute pulmonary embolus, now being treated for psychosis, depressed mood and suicidal ideation with stated plan to shoot himself with his own shotgun. Plan - Plan Treatment Plan: Name: NAMAN POLANCO Birthdate: 1970 [id number] The patient is restarted on aripiprazole 15mg PO qhs and duloxetine 60mg PO qday. Hospitalist service is following for HTN and PE issues. Continue to treat on an inpatient basis. Continued Medication Management: Start Medication Medications: Current Medications Al Hydrox/Mg Hydrox/Simethicone (Maalox Plus*) 30 ml PO Q4H PRN PRN Reason: INDIGESTION Amlodipine Besylate (Norvasc Tab*) 10 mg PO DAILY [facility] Last Admin: 07/17/18 09:53 Dose: 10 mg Aripiprazole (Abilify Tab*) 15 mg PO BEDTIME [facility] Last Admin: 07/16/18 21:03 Dose: 15 mg Diltiazem HCl (Cardizem Cd Cap*) 240 mg PO DAILY [facility] Last Admin: 07/17/18 09:52 Dose: 240 mg Duloxetine HCl (Cymbalta Cap*) 60 mg PO DAILY [facility] Last Admin: 07/17/18 09:52 Dose: 60 mg Hydroxyzine HCl (Atarax Tab*) 50 mg PO Q6H PRN PRN Reason: ANXIETY Lisinopril (Prinivil Tab*) 10 mg PO DAILY [facility] Last Admin: 07/17/18 09:52 Dose: 10 mg Metoprolol Tartrate (Lopressor Tab*) 50 mg PO Q12HR [facility] Last Admin: 07/17/18 09:54 Dose: 50 mg Rivaroxaban (Xarelto(*)) 15 mg PO BID [facility] Stop: 08/02/18 21:01 Last Admin: 07/17/18 09:53 Dose: 15 mg Trazodone HCl (Desyrel Tab*) 50 mg PO BEDTIME PRN PRN Reason: INSOMNIA - Discharge Plan Discharge Plan: Inpatient Hospitalization
[2018-07-17] MEDS: ARIPiprazole TAB* 15 MG PO SCH (21:01)
[2018-07-18] MEDS: Rivaroxaban TAB(*) 15 MG PO SCH ×2 (09:49→21:46)
[2018-07-18] MEDS: DULoxetine DR CAP* 60 MG CAP.DR PO SCH (09:49)
[2018-07-18] MEDS: Lisinopril TAB* 10 MG PO SCH (09:49)
[2018-07-18] MEDS: Diltiazem CD CAP* 240 MG PO SCH (09:49)
[2018-07-18] MEDS: Metoprolol Tartrate TAB* 50 mg PO SCH ×2 (09:49→21:46)
[2018-07-18] MEDS: amLODIPine TAB* 5 MG PO SCH (09:49)
--- NOTE | 2018-07-18 11:26 | PN ---
Subjective - Subjective Date of Service: 07/18/18 Service Type: 54054 Hosp care 15 min low complexity Subjective: Naman certainly looks better but it's been very difficult to get him out of bed to come to groups. He assures me that he'll attend today. He denies SI or HI. Objective - Appearance Appearance: Well Developed/Nourished Dysmorphic Features: No Hygiene: Normal Grooming: Well Kept - Behavior Psychomotor Activities: Normal Exhibits Abnormal Movement: No - Attitude and Relatedness Attitude and Relatedness: Cooperative Eye Contact: Good - Speech Quality: Unpressured Latencies: Normal Quantity: Appropriate - Mood Patient's Decription of Mood: "Good" - Affect Observed Affect: Good Affect Consistent with: Euthymia - Thought Process Patient's Thought Process: Coherent Thought Content: No Passive Wish, No Suicidal Planning, No Homicidal Ideation, No Paranoid Ideation - Sensorium Experiencing Hallucinations: No, Sensorium is Clear Type of Hallucinations: Visual: No, Auditory: No, Command: No - Level of Consciousness Level of Consciousness: Alert Orientation: Yes Intact, Yes Orientated to Time, Yes Orientated to Place, Yes Orientated to Person - Impulse Control Impulse Control: Tenuous - Insight and Judgement Insight and Judgement: Fair - Group Participation Particating in Group Activities: No - Medication Management Medication Management Adherence: Yes Assessment - Assessment Merits Inpatient Hospitalization: For Immediate Safety, For Stabilization Inpatient DSM-V Dx: F33.3 Clinical Impression: 48 y.o. single, never , employed, white male with a history of recurrent psychotic depression who has been off medications and out of treatment for several years, transferred from the hospitalist service following medical stabilization of malignant hypertension and acute pulmonary embolus, now being treated for psychosis, depressed mood and suicidal ideation with stated plan to shoot himself with his own shotgun. Plan - Plan Treatment Plan: Name: NAMAN POLANCO Birthdate: 1970 [id number] The patient is restarted on aripiprazole 15mg PO qhs and duloxetine 60mg PO qday. Hospitalist service is following for HTN and PE issues. Continue to treat on an inpatient basis. Target July 20 for discharge. Continued Medication Management: Start Medication Medications: Current Medications Al Hydrox/Mg Hydrox/Simethicone (Maalox Plus*) 30 ml PO Q4H PRN PRN Reason: INDIGESTION Amlodipine Besylate (Norvasc Tab*) 10 mg PO DAILY [facility] Last Admin: 07/18/18 09:49 Dose: 10 mg Aripiprazole (Abilify Tab*) 15 mg PO BEDTIME [facility] Last Admin: 07/17/18 21:01 Dose: 15 mg Diltiazem HCl (Cardizem Cd Cap*) 240 mg PO DAILY [facility] Last Admin: 07/18/18 09:49 Dose: 240 mg Duloxetine HCl (Cymbalta Cap*) 60 mg PO DAILY [facility] Last Admin: 07/18/18 09:49 Dose: 60 mg Hydroxyzine HCl (Atarax Tab*) 50 mg PO Q6H PRN PRN Reason: ANXIETY Lisinopril (Prinivil Tab*) 10 mg PO DAILY [facility] Last Admin: 07/18/18 09:49 Dose: 10 mg Metoprolol Tartrate (Lopressor Tab*) 50 mg PO Q12HR [facility] Last Admin: 07/18/18 09:49 Dose: 50 mg Rivaroxaban (Xarelto(*)) 15 mg PO BID [facility] Stop: 08/02/18 21:01 Last Admin: 07/18/18 09:49 Dose: 15 mg Trazodone HCl (Desyrel Tab*) 50 mg PO BEDTIME PRN PRN Reason: INSOMNIA - Discharge Plan Discharge Plan: Inpatient Hospitalization
[2018-07-18] MEDS: ARIPiprazole TAB* 15 MG PO SCH (21:46)
[2018-07-19] MEDS: Diltiazem CD CAP* 240 MG PO SCH (09:11)
[2018-07-19] MEDS: DULoxetine DR CAP* 60 MG CAP.DR PO SCH (09:11)
[2018-07-19] MEDS: Lisinopril TAB* 10 MG PO SCH (09:11)
[2018-07-19] MEDS: amLODIPine TAB* 5 MG PO SCH (09:11)
[2018-07-19] MEDS: Rivaroxaban TAB(*) 15 MG PO SCH ×2 (09:12→21:35)
[2018-07-19] MEDS: Metoprolol Tartrate TAB* 50 mg PO SCH ×2 (09:12→21:35)
--- NOTE | 2018-07-19 11:09 | PN ---
Subjective - Subjective Date of Service: 07/19/18 Service Type: 51852 Hosp care 15 min low complexity Subjective: Naman is again found lying down in his room. Staff reports that he remains seclusive and non-participatory on the unit despite numerous attempts to roust him out of his bed. He is not attending groups and still not showering. He is going to meals and is calm and cooperative and euthymic on exam. "OK, I'll go today. Just come get me." He is reminded that he told me that yesterday. The patient denies SI or HI. Objective - Appearance Appearance: Well Developed/Nourished Dysmorphic Features: No Hygiene: Normal Grooming: Fairly Well Kept - Behavior Psychomotor Activities: Normal Exhibits Abnormal Movement: No - Attitude and Relatedness Attitude and Relatedness: Withdrawn Eye Contact: Fair - Speech Quality: Unpressured Latencies: Normal Quantity: Terse - Mood Patient's Decription of Mood: "Okay" - Affect Observed Affect: Fair Affect Consistent with: Euthymia - Thought Process Patient's Thought Process: Coherent, Impoverished Thought Content: No Passive Wish, No Suicidal Planning, No Homicidal Ideation, No Paranoid Ideation - Sensorium Experiencing Hallucinations: No, Sensorium is Clear Type of Hallucinations: Visual: No, Auditory: No, Command: No - Level of Consciousness Level of Consciousness: Alert Orientation: Yes Intact, Yes Orientated to Time, Yes Orientated to Place, Yes Orientated to Person - Impulse Control Impulse Control: Tenuous - Insight and Judgement Insight and Judgement: Fair - Group Participation Particating in Group Activities: No - Medication Management Medication Management Adherence: Yes Assessment - Assessment Merits Inpatient Hospitalization: For Immediate Safety, For Stabilization Inpatient DSM-V Dx: F33.3 Clinical Impression: 48 y.o. single, never , employed, white male with a history of recurrent psychotic depression who has been off medications and out of treatment for several years, transferred from the hospitalist service following medical stabilization of malignant hypertension and acute pulmonary embolus, now being treated for psychosis, depressed mood and suicidal ideation with stated plan to shoot himself with his own shotgun. Plan - Plan Treatment Plan: Name: NAMAN POLANCO Birthdate: 1970 [id number] The patient is restarted on aripiprazole 15mg PO qhs and duloxetine 60mg PO qday. Hospitalist service is following for HTN and PE issues. Continue to treat on an inpatient basis. Target July 23 for discharge. Continued Medication Management: Start Medication Medications: Current Medications Al Hydrox/Mg Hydrox/Simethicone (Maalox Plus*) 30 ml PO Q4H PRN PRN Reason: INDIGESTION Amlodipine Besylate (Norvasc Tab*) 10 mg PO DAILY [facility] Last Admin: 07/19/18 09:11 Dose: 10 mg Aripiprazole (Abilify Tab*) 15 mg PO BEDTIME [facility] Last Admin: 07/18/18 21:46 Dose: 15 mg Diltiazem HCl (Cardizem Cd Cap*) 240 mg PO DAILY [facility] Last Admin: 07/19/18 09:11 Dose: 240 mg Duloxetine HCl (Cymbalta Cap*) 60 mg PO DAILY [facility] Last Admin: 07/19/18 09:11 Dose: 60 mg Hydroxyzine HCl (Atarax Tab*) 50 mg PO Q6H PRN PRN Reason: ANXIETY Lisinopril (Prinivil Tab*) 10 mg PO DAILY [facility] Last Admin: 07/19/18 09:11 Dose: 10 mg Metoprolol Tartrate (Lopressor Tab*) 50 mg PO Q12HR [facility] Last Admin: 07/19/18 09:12 Dose: 50 mg Rivaroxaban (Xarelto(*)) 15 mg PO BID [facility] Stop: 08/02/18 21:01 Last Admin: 07/19/18 09:12 Dose: 15 mg Trazodone HCl (Desyrel Tab*) 50 mg PO BEDTIME PRN PRN Reason: INSOMNIA - Discharge Plan Discharge Plan: Inpatient Hospitalization
[2018-07-19] MEDS: ARIPiprazole TAB* 15 MG PO SCH (21:34)
[2018-07-20] MEDS: Metoprolol Tartrate TAB* 50 mg PO SCH ×2 (09:47→21:55)
[2018-07-20] MEDS: Rivaroxaban TAB(*) 15 MG PO SCH ×2 (09:47→21:55)
[2018-07-20] MEDS: amLODIPine TAB* 5 MG PO SCH (09:47)
[2018-07-20] MEDS: Diltiazem CD CAP* 240 MG PO SCH (09:47)
[2018-07-20] MEDS: Lisinopril TAB* 10 MG PO SCH (09:47)
[2018-07-20] MEDS: DULoxetine DR CAP* 60 MG CAP.DR PO SCH (09:47)
--- NOTE | 2018-07-20 12:55 | PN ---
Subjective - Subjective Date of Service: 07/20/18 Service Type: [id number] Hosp care 15 min low complexity Subjective: Naman did attend some group programming yesterday, although I find him lying down in bed in his room, as per his usual presentation so far this hospitalization. Naman insists that this is how he is at baseline. "I usually come home from work and head straight for the couch." He continues to deny SI or HI and feels ready for discharge. Objective - Appearance Appearance: Well Developed/Nourished Dysmorphic Features: No Hygiene: Normal Grooming: Fairly Well Kept - Behavior Psychomotor Activities: Normal Exhibits Abnormal Movement: No - Attitude and Relatedness Attitude and Relatedness: Cooperative Eye Contact: Fair - Speech Quality: Unpressured Latencies: Normal Quantity: Terse - Mood Patient's Decription of Mood: "Good" - Affect Observed Affect: Good Affect Consistent with: Euthymia - Thought Process Patient's Thought Process: Coherent Thought Content: No Passive Wish, No Suicidal Planning, No Homicidal Ideation, No Paranoid Ideation - Sensorium Experiencing Hallucinations: No, Sensorium is Clear Type of Hallucinations: Visual: No, Auditory: No, Command: No - Level of Consciousness Level of Consciousness: Lethargic Orientation: Yes Intact, Yes Orientated to Time, Yes Orientated to Place, Yes Orientated to Person - Impulse Control Impulse Control: Tenuous - Insight and Judgement Insight and Judgement: Fair - Group Participation Particating in Group Activities: No - Medication Management Medication Management Adherence: Yes Assessment - Assessment Merits Inpatient Hospitalization: Consolidate Improvements, Pending Safe DC Plan Inpatient DSM-V Dx: F33.3 Clinical Impression: 48 y.o. single, never , employed, white male with a history of recurrent psychotic depression who has been off medications and out of treatment for several years, transferred from the hospitalist service following medical stabilization of malignant hypertension and acute pulmonary embolus, now being treated for psychosis, depressed mood and suicidal ideation with stated plan to shoot himself with his own shotgun. Plan - Plan Treatment Plan: Name: NAMAN POLANCO Birthdate: 1970 [id number] The patient is restarted on aripiprazole 15mg PO qhs and duloxetine 60mg PO qday. Hospitalist service is following for HTN and PE issues. Continue to treat on an inpatient basis as patient's behavior does not seem activated enough to warrant outpatient care. Target July 23 for discharge. Continued Medication Management: Start Medication Medications: Current Medications Al Hydrox/Mg Hydrox/Simethicone (Maalox Plus*) 30 ml PO Q4H PRN PRN Reason: INDIGESTION Amlodipine Besylate (Norvasc Tab*) 10 mg PO DAILY [facility] Last Admin: 07/20/18 09:47 Dose: 10 mg Aripiprazole (Abilify Tab*) 15 mg PO BEDTIME [facility] Last Admin: 07/19/18 21:34 Dose: 15 mg Diltiazem HCl (Cardizem Cd Cap*) 240 mg PO DAILY [facility] Last Admin: 07/20/18 09:47 Dose: 240 mg Duloxetine HCl (Cymbalta Cap*) 60 mg PO DAILY [facility] Last Admin: 07/20/18 09:47 Dose: 60 mg Hydroxyzine HCl (Atarax Tab*) 50 mg PO Q6H PRN PRN Reason: ANXIETY Lisinopril (Prinivil Tab*) 10 mg PO DAILY [facility] Last Admin: 07/20/18 09:47 Dose: 10 mg Metoprolol Tartrate (Lopressor Tab*) 50 mg PO Q12HR [facility] Last Admin: 07/20/18 09:47 Dose: 50 mg Rivaroxaban (Xarelto(*)) 15 mg PO BID [facility] Stop: 08/02/18 21:01 Last Admin: 07/20/18 09:47 Dose: 15 mg Trazodone HCl (Desyrel Tab*) 50 mg PO BEDTIME PRN PRN Reason: INSOMNIA - Discharge Plan Discharge Plan: Inpatient Hospitalization
[2018-07-20] MEDS: ARIPiprazole TAB* 15 MG PO SCH (21:55)
[2018-07-21] MEDS: Lisinopril TAB* 10 MG PO SCH (09:57)
[2018-07-21] MEDS: Diltiazem CD CAP* 240 MG PO SCH (09:57)
[2018-07-21] MEDS: DULoxetine DR CAP* 60 MG CAP.DR PO SCH (09:57)
[2018-07-21] MEDS: Metoprolol Tartrate TAB* 50 mg PO SCH ×2 (09:57→21:53)
[2018-07-21] MEDS: Rivaroxaban TAB(*) 15 MG PO SCH ×2 (09:57→21:53)
[2018-07-21] MEDS: amLODIPine TAB* 5 MG PO SCH (09:57)
[2018-07-21] MEDS: ARIPiprazole TAB* 15 MG PO SCH (21:53)
[2018-07-22] MEDS: Metoprolol Tartrate TAB* 50 mg PO SCH ×2 (09:32→20:36)
[2018-07-22] MEDS: amLODIPine TAB* 5 MG PO SCH (09:32)
[2018-07-22] MEDS: Lisinopril TAB* 10 MG PO SCH (09:32)
[2018-07-22] MEDS: DULoxetine DR CAP* 60 MG CAP.DR PO SCH (09:32)
[2018-07-22] MEDS: Diltiazem CD CAP* 240 MG PO SCH (09:33)
[2018-07-22] MEDS: Rivaroxaban TAB(*) 15 MG PO SCH ×2 (09:33→20:36)
[2018-07-22] MEDS: ARIPiprazole TAB* 15 MG PO SCH (20:36)
[2018-07-23] MEDS: Metoprolol Tartrate TAB* 50 mg PO SCH ×2 (11:12→20:23)
[2018-07-23] MEDS: Lisinopril TAB* 10 MG PO SCH (11:12)
[2018-07-23] MEDS: amLODIPine TAB* 5 MG PO SCH (11:13)
[2018-07-23] MEDS: Rivaroxaban TAB(*) 15 MG PO SCH ×2 (11:13→20:23)
[2018-07-23] MEDS: DULoxetine DR CAP* 60 MG CAP.DR PO SCH (11:13)
[2018-07-23] MEDS: Diltiazem CD CAP* 240 MG PO SCH (11:14)
--- NOTE | 2018-07-23 13:10 | PN ---
Progress Note - Progress Note Date of Service: 07/23/18 Note: S: Naman was set for discharge today, however, his father, Clive Kamara Sr., arrived for routine visitation, seeming shocked that we were discharging his son. "He's not ready yet. This still isn't the real him. If he goes home he' s just gonna lay on the couch. We can't take care of him like this." I did confirm with staff that the patient still requires seemingly excessive encouragement to attend to ADLs and to go to groups, most of which he misses despite the staff's best efforts. O: balding white male; minimal speech; euthymic with blunted affect; denies SI or HI; denies AH or VH A/P: Psychotic MDD -- will cancel discharge. Increase duloxetine from 60 to 90mg daily and increase aripiprazole from 15 to 20mg nightly. Re-evaluate as week goes on.
--- NOTE | 2018-07-23 15:12 | DS ---
DATE OF ADMISSION: 07/12/2018. DATE OF DISCHARGE: 07/25/2018. DISCHARGE DIAGNOSES: AXIS I: Major depressive disorder, recurrent, severe with psychotic features. AXIS II: Deferred. CONDITION AT THE TIME OF DISCHARGE: Improved. Naman is currently euthymic. He is tolerating his psychiatric and medical medications quite well. He is denying chest pain or difficulty breathing. He is tolerating anticoagulants as well as blood pressure medications and we have noted consistently that his blood pressure is within the normal limits. He has steadfastly denied suicidal ideations throughout this admission. We have observed him starting to be more social and more interactive. Family has visited several times throughout this hospitalization, including his brother, sister, and father, as well as stepmother and they feel that he is back to his psychiatric baseline. We do feel that Naman could benefit from some additional time away from work, so we are giving him a work note for his employer which is the [employer] so that he can have an additional week off from work. The patient has a comprehensive follow-up in the community both at the [facility] as well as at [facility] and he is agreeable with doing so. At this time, Naman appears to have benefited greatly from inpatient hospitalization and he is appropriately requesting discharge. He is future oriented, stating that he wants to get back to work and would like to spend time with his family. MENTAL STATUS EXAM AT THE TIME OF DISCHARGE: Naman is a middle-aged, balding , white male who is somewhat short of stature who is dressed in street clothes, including jeans and a button down shirt, who is clean, well-groomed, calm, and cooperative. He makes fairly good eye contact. He is quite with terse language and not much spontaneous speech; however, he speaks fluently and does respond to questions appropriately. Mood would appear to be euthymic with a full, somewhat blunted affect. Thought process is linear, goal-directed. Thought content reveals his desire to be discharged from the hospital. He denies for suicidal or homicidal ideations. He denies auditory or visual hallucinations. Insight and judgment are fair given his willingness to follow- up with outpatient treatment. Cognitively, he is awake and alert with what would appear to be an average intellect. LABORATORY DATA: Routine metabolic screening was performed on 07/10/2018. At that time, his hemoglobin A1c was slightly elevated at 5.7 percent, triglycerides were 70, cholesterol 154, LDL cholesterol 96, HDL cholesterol 44.1. DISCHARGE INSTRUCTIONS TO THE PATIENT: A. Medications: He is on Norvasc 10 mg p.o. daily, Xarelto 15 mg p.o. b.i.d. until August 02 at which time his dose will decrease to 20 mg p.o. at bedtime , Lopressor 50 mg p.o. b.i.d., Lisinopril 10 mg p.o. daily, Cardizem CD 240 mg p.o. daily, Cymbalta 60 mg p.o. daily, Abilify 15 mg p.o. at bedtime. B. Diet: Regular. C. Activities: As tolerated. The patient is an every day smoker; however, he is declining the offer of nicotine replacement therapy products, instead choosing to continue smoking. We have provided him with the [facility] Smokers Quitline which is . There are no laboratory or diagnostic studies pending at the time of discharge. D. Follow-up care: The patient will follow-up at the [facility] within one week of discharge. In addition, for his medical issues , he is follow-up at the [facility] within one week of discharge. E. Substance abuse follow-up: Nonapplicable. HOSPITAL COURSE - PART A: Reason for admission: The patient is a 48-year-old single, never , employed, white male with a history of psychotic depression who has been off medications for several years who was brought to the hospital by his father and brother on the 08 of July due to concerns that the patient made suicidal statements. In the emergency room, it was discovered that he had nonspecific ST segment changes on his EKG, as well as grossly elevated blood pressure and was therefore hospitalized on the medical service. He has since been started on numerous antihypertensive medications and his hemodynamic status has been stabilized; therefore, he has been transferred to the [facility] for further care. The patient is an extremely limited historian. He is lying in bed with a stiff posture with an intense stare. He is not speaking spontaneously and is limited in his ability to answer questions coherently. For history, I rely on a previous psychiatric H and P from 2010 as well as his brother, Jose Kamara, who provides more history over the phone. Apparently, the patient had been doing well for years and they were aware that he stopped taking medications and stopped following up at [facility] services because he was simply doing better. Over the , he seemed okay, although he did alert his family that he was going to be experiencing an increase in his rent which was stressful. Thereafter, on 07/08/2018, his brother Jose received an odd text which did not make much sense and the brother and father went to the patient's apartment to see how he was doing. There they found him with the same blank stare and he made suicidal statement to them which prompted them to bring him to the ED. It is notable that the patient does own a shotgun which he stated in the ED that he had placed in his mouth while contemplating suicide. The brother reported to me that the shotgun is now in a safe in the brother's possession. Jose was unaware of any further stressors that might be involved, although he does state that Naman has a history of pathological gambling, mostly on lottery scratch off tickets. I asked Naman about this and the patient denied any recent gambling debts or financial problems. The patient was not able to state what relevant stressors may have contributed to this episode. Interestingly, it was discovered that he has a pulmonary embolus for which the medical service started him on anticoagulant therapy. I also note in his record that he was once diagnosed with a demyelinating disease, although it was not clear whether he has had recent head imaging. Symptomatically, the patient does endorse multiple neurovegetative symptoms including insomnia, low energy, impaired attention, feelings of hopelessness, lost interest, helplessness. He denied hearing voices, although he has heard these in the past. If did appear at times that he was responding to internal stimuli. HOSPITAL COURSE - PART B: Psychiatric treatment rendered: The patient was transferred from the 4th floor to the 2nd floor Behavioral Science Unit where he was placed on q.15 minute checks for his own safety. We had already resumed treatment with his prior medication regimen which included Duloxetine and Aripiprazole. These were respectively titrated to their effective doses which were 60 mg of Duloxetine and 15 mg of Aripiprazole. We continued his antihypertensive treatments which included Norvasc, Lopressor, Lisinopril, and Cardizem. Because of his newly diagnosed pulmonary embolus, he was kept on Xarelto 15 mg p.o. b.i.d. The patient's affect gradually improved. We noted that he was no longer suicidal and he stated that he was back at his baseline after only two to three days; however, we noted that his behavior remained quite seclusive and he typically did not attend groups. We did encourage him strongly to come out and socialized more. He received numerous visits from his family which were very supportive. We were initially set to discharge Naman on July 23, however, his father, Naman Garcia. observed that he still was not interactive to his baseline level. With the patient's permission we extended his inpatient stay an additional 2 days and found him to be much more self-directed, social and engaged in groups and ADLs. His step-mother is now here to pick him up and take him home. The patient is tolerating treatment quite well and he is willing to receive continued care in the outpatient setting. He denies thoughts of self-harm and is appropriately requesting discharge. We are granting him a work note so that he does not have to return to work for the [employer] until August 01 of this year. Naman has done well here and we wish him the best for a safe and healthy future. [id number]/[facility] #: [id number] MTDD
[2018-07-23] MEDS: ARIPiprazole TAB* 20 MG PO SCH (20:23)
[2018-07-24] MEDS: Rivaroxaban TAB(*) 15 MG PO SCH ×2 (09:47→21:33)
[2018-07-24] MEDS: Diltiazem CD CAP* 240 MG PO SCH (09:47)
[2018-07-24] MEDS: DULoxetine DR CAP* 30 MG CAP.DR PO SCH (09:47)
[2018-07-24] MEDS: Lisinopril TAB* 10 MG PO SCH (09:47)
[2018-07-24] MEDS: amLODIPine TAB* 5 MG PO SCH (09:47)
[2018-07-24] MEDS: Metoprolol Tartrate TAB* 50 mg PO SCH ×2 (09:48→21:32)
--- NOTE | 2018-07-24 11:03 | PN ---
Subjective - Subjective Date of Service: 07/24/18 Service Type: [id number] Hosp care 15 min low complexity Subjective: Naman appears much more alert, more spontaneous, out of his room, dressed and well-groomed, going to groups and participating more on the milieu. Continues to deny SI or HI. Objective - Appearance Appearance: Well Developed/Nourished Dysmorphic Features: No Hygiene: Normal Grooming: Well Kept - Behavior Psychomotor Activities: Normal Exhibits Abnormal Movement: No - Attitude and Relatedness Attitude and Relatedness: Cooperative Eye Contact: Good - Speech Quality: Unpressured Latencies: Normal Quantity: Appropriate - Mood Patient's Decription of Mood: "Good" - Affect Observed Affect: Good Affect Consistent with: Euthymia - Thought Process Patient's Thought Process: Coherent Thought Content: No Passive Wish, No Suicidal Planning, No Homicidal Ideation, No Paranoid Ideation - Sensorium Experiencing Hallucinations: No, Sensorium is Clear Type of Hallucinations: Visual: No, Auditory: No, Command: No - Level of Consciousness Level of Consciousness: Alert Orientation: Yes Intact, Yes Orientated to Time, Yes Orientated to Place, Yes Orientated to Person - Impulse Control Impulse Control: Tenuous - Insight and Judgement Insight and Judgement: Fair - Group Participation Particating in Group Activities: Yes - Medication Management Medication Management Adherence: Yes Assessment - Assessment Merits Inpatient Hospitalization: Consolidate Improvements, Pending Safe DC Plan Inpatient DSM-V Dx: F33.3 Clinical Impression: 48 y.o. single, never , employed, white male with a history of recurrent psychotic depression who has been off medications and out of treatment for several years, transferred from the hospitalist service following medical stabilization of malignant hypertension and acute pulmonary embolus, now being treated for psychosis, depressed mood and suicidal ideation with stated plan to shoot himself with his own shotgun. Plan - Plan Treatment Plan: Name: NAMAN POLANCO Birthdate: 1970 [id number] The patient is restarted on aripiprazole 20mg PO qhs and duloxetine 90mg PO qday. Hospitalist service is following for HTN and PE issues. He is improving and we will target tomorrow, Monday, July 25 for discharge. Continued Medication Management: Start Medication Medications: Current Medications Al Hydrox/Mg Hydrox/Simethicone (Maalox Plus*) 30 ml PO Q4H PRN PRN Reason: INDIGESTION Amlodipine Besylate (Norvasc Tab*) 10 mg PO DAILY [facility] Last Admin: 07/24/18 09:47 Dose: 10 mg Aripiprazole (Abilify Tab*) 20 mg PO BEDTIME [facility] Last Admin: 07/23/18 20:23 Dose: 20 mg Diltiazem HCl (Cardizem Cd Cap*) 240 mg PO DAILY [facility] Last Admin: 07/24/18 09:47 Dose: 240 mg Duloxetine HCl (Cymbalta Cap*) 90 mg PO DAILY [facility] Last Admin: 07/24/18 09:47 Dose: 90 mg Hydroxyzine HCl (Atarax Tab*) 50 mg PO Q6H PRN PRN Reason: ANXIETY Lisinopril (Prinivil Tab*) 10 mg PO DAILY [facility] Last Admin: 07/24/18 09:47 Dose: 10 mg Metoprolol Tartrate (Lopressor Tab*) 50 mg PO Q12HR [facility] Last Admin: 07/24/18 09:48 Dose: 50 mg Rivaroxaban (Xarelto(*)) 15 mg PO BID [facility] Stop: 08/02/18 21:01 Last Admin: 07/24/18 09:47 Dose: 15 mg Trazodone HCl (Desyrel Tab*) 50 mg PO BEDTIME PRN PRN Reason: INSOMNIA - Discharge Plan Discharge Plan: Outpatient Follow Up Outpatient Program: [facility]
[2018-07-24] MEDS: ARIPiprazole TAB* 20 MG PO SCH (21:32)
[2018-07-25 10:29] VITALS: BP 119/76
[2018-07-25] MEDS: Diltiazem CD CAP* 240 MG PO SCH (10:53)
[2018-07-25] MEDS: DULoxetine DR CAP* 30 MG CAP.DR PO SCH (10:53)
[2018-07-25] MEDS: Metoprolol Tartrate TAB* 50 mg PO SCH (10:53)
[2018-07-25] MEDS: amLODIPine TAB* 5 MG PO SCH (10:53)
[2018-07-25] MEDS: Lisinopril TAB* 10 MG PO SCH (10:53)
[2018-07-25] MEDS: Rivaroxaban TAB(*) 15 MG PO SCH (10:53)
--- NOTE | 2018-07-25 12:10 | DCNOTE ---
Subjective - Subjective Service Types: [id number] [facility] Day Mgmt simple under 30 min Discharge Date: 07/25/18 Subjective: Naman was set for discharge this morning when staff noted that he was acting oddly, seemed confused and did not know which direction the day room was, despite being here for the past 2 weeks. His vitals were checked and were within normal limits. I assessed him and he seemed at his baseline he was completely oriented to place, time, person and situation. He scored 30/30 on an MMSE and his neurological exam was within normal limits. "I feel good. I'd like to go home today." His step-mother felt he was at baseline and was prepared to take him to sweet pickled fruit maker his medications at [facility] and to do some shopping for food and household items. Naman continues to deny suicidal thoughts and I confirmed that his brother is still in locked possession of his firearm. Objective - Appearance Appearance: Well Developed/Nourished Dysmorphic Features: No Hygiene: Normal Grooming: Well Kept - Behavior Psychomotor Activities: Normal Exhibits Abnormal Movement: No - Attitude and Relatedness Attitude and Relatedness: Cooperative Eye Contact: Good - Speech Quality: Unpressured Latencies: Normal Quantity: Terse - Mood Patient's Decription of Mood: "Good" - Affect Observed Affect: Good Affect Consistent with: Euthymia - Thought Process Patient's Thought Process: Coherent Thought Content: No Passive Wish, No Suicidal Planning, No Homicidal Ideation, No Paranoid Ideation - Sensorium Experiencing Hallucinations: Yes Type of Hallucinations: Visual: No, Auditory: No, Command: No - Level of Consciousness Level of Consciousness: Alert Orientation: Yes Intact, Yes Orientated to Time, Yes Orientated to Place, Yes Orientated to Person - Impulse Control Impulse Control: Tenuous - Insight and Judgement Insight and Judgement: Fair - Group Participation Particating in Group Activities: Yes - Medication Management Medication Management Adherence: Yes DC Assessment - Assessment Clinical Impression: 48 y.o. single, never , employed, white male with a history of recurrent psychotic depression who has been off medications and out of treatment for several years, transferred from the hospitalist service following medical stabilization of malignant hypertension and acute pulmonary embolus, now being treated for psychosis, depressed mood and suicidal ideation with stated plan to shoot himself with his own shotgun. Patient is now psychiatrically stable and back to his baseline. Merits Inpatient Hospitalization: No Clear for Discharge: Adequate Clinical Respons, Acceptable Safety Profile, Low Utility of Inpt Care Inpatient DSM-V Dx: F33.3 Discharge Planning - Discharge Planning Discharge Plan: Outpatient Follow Up Outpatient Program: [facility] Recommendations for Continuing Care: Medication Management Medications: Current Medications Al Hydrox/Mg Hydrox/Simethicone (Maalox Plus*) 30 ml PO Q4H PRN PRN Reason: INDIGESTION Amlodipine Besylate (Norvasc Tab*) 10 mg PO DAILY [facility] Last Admin: 07/25/18 10:53 Dose: 10 mg Aripiprazole (Abilify Tab*) 20 mg PO BEDTIME [facility] Last Admin: 07/24/18 21:32 Dose: 20 mg Diltiazem HCl (Cardizem Cd Cap*) 240 mg PO DAILY [facility] Last Admin: 07/25/18 10:53 Dose: 240 mg Duloxetine HCl (Cymbalta Cap*) 90 mg PO DAILY [facility] Last Admin: 07/25/18 10:53 Dose: 90 mg Hydroxyzine HCl (Atarax Tab*) 50 mg PO Q6H PRN PRN Reason: ANXIETY Lisinopril (Prinivil Tab*) 10 mg PO DAILY [facility] Last Admin: 07/25/18 10:53 Dose: 10 mg Metoprolol Tartrate (Lopressor Tab*) 50 mg PO Q12HR [facility] Last Admin: 07/25/18 10:53 Dose: 50 mg Rivaroxaban (Xarelto(*)) 15 mg PO BID [facility] Stop: 08/02/18 21:01 Last Admin: 07/25/18 10:53 Dose: 15 mg Trazodone HCl (Desyrel Tab*) 50 mg PO BEDTIME PRN PRN Reason: INSOMNIA Discharge Planning: Prescriptions provided for discharge [] Yes [] No Follow up care details as per social work arrangements. Patient response to discharge plan: [] eager for discharge [] agreeable with discharge plan [] ambivalent about discharge [] disagrees with discharge today
== END 2018-07-25 11:50 | disposition home or self-care (01) | DRG 751 ==
LOC: BSU 13:41
PROVIDERS: ADMIT Psychiatry & Neurology Psychiatry; ATTEND Psychiatry & Neurology Psychiatry
DX: F33.3 Major depressive disorder, recurrent, severe with psychotic symptoms (principal); I26.99 Other pulmonary embolism without acute cor pulmonale; R45.851 Suicidal ideations; G37.9 Demyelinating disease of central nervous system, unspecified; F17.210 Nicotine dependence, cigarettes, uncomplicated; I10 Essential (primary) hypertension; E78.00 Pure hypercholesterolemia, unspecified; I16.0 Hypertensive urgency; R00.0 Tachycardia, unspecified; Z79.899 Other long term (current) drug therapy
CPT/HCPCS: 99222; 99231; 99238; A9270-GY

== ENCOUNTER 2018-07-26 15:04 | Inpatient (IN) | payer BC ==
--- NOTE | 2018-07-26 15:37 | ED ---
Psychiatric Complaint - HPI Summary HPI Summary: Patient is a 48 y/o M presenting to ED with complaints of SI w/o plan. Father is present in the room. Patient was admitted 07/12/17 to [facility] after he put a gun in his mouth with plans of dying by suicide. He was discharged to home yesterday , father was told that patient can be left by himself. Father states that patient has not eaten since 1600 yesterday. When father went to see patient at 1100 today, he states that the patient expressed SI w/o plan. Father reports PMHx of MS. Patient also has a blood clot in left lower lung that was found on admission on 07/12. Patient is on Xarelto for blood clot. On triage, pain denied, nothing is noted to aggravate/alleviate Sx. Home medication and allergies. - History Of Current Complaint Chief Complaint: EDMentalHealth Time Seen by Provider: 07/26/18 15:28 Hx Obtained From: Patient, Family/Home Demonstration Agent - father Onset/Duration: Lasting Hours - SI w/o plan reported at 1100 today., Still Present Timing: Hours - SI w/o plan reported at 1100 today. Severity Currently: None - pain denied Character: Depressed Aggravating Factor(s): Nothing Alleviating Factor(s): Nothing Associated Signs And Symptoms: Positive: Appetite Change - no food since 1600 yesterday Has Suicidal: Reports: Thoughts. Denies: With A Plan - Allergies/Home Medications Allergies/Adverse Reactions: Allergies Allergy/AdvReac Type Severity Reaction Status Date / Time No Known Drug Allergies Allergy See Comment Verified 07/26/18 15:30 Seasonal Allergies Allergy Congestion Uncoded 07/26/18 15:30 PMH/Surg Hx/FS Hx/Imm Hx Endocrine/Hematology History: Denies: Hx Diabetes, Hx Thyroid Disease Cardiovascular History: Reports: Hx Hypertension Respiratory History: Denies: Hx Asthma, Hx Chronic Obstructive Pulmonary Disease (COPD) GI History: Denies: Hx Ulcer Sensory History: Denies: Hx Contacts or Glasses, Hx Hearing Aid Opthamlomology History: Denies: Hx Contacts or Glasses Psychiatric History: Reports: Hx Depression - Surgical History Surgery Procedure, Year, and Place: UMBILICAL HERNIA REPAIR 05/2012. LEFT WRIST SURGERY Infectious Disease History: No Infectious Disease History: Denies: Hx Hepatitis, Hx Human Immunodeficiency Virus (HIV), History Other Infectious Disease, Traveled Outside the [place] in Last 30 Days - Family History Known Family History: Negative: Cardiac Disease, Hypertension, Diabetes, Other - Psychiatric illness - Social History Alcohol Use: Rare Substance Use Type: Reports: None Smoking Status (MU): Never Smoked Tobacco Review of Systems Negative: Fever - on vitals, temp is 97.6 F Gastrointestinal: Other - POSITIVE - DECREASED APPETITE Psychological: Other - POSITIVE - SI W/O PLAN All Other Systems Reviewed And Are Negative: Yes Physical Exam - Summary Physical Exam Summary: VITAL SIGNS: Reviewed. GENERAL: Patient is a well-developed and nourished male who is lying comfortable in the stretcher. Patient is not in any acute respiratory distress. HEAD AND FACE: No signs of trauma. No ecchymosis, hematomas or skull depressions. No sinus tenderness. EYES: PERRLA, EOMI x 2, No injected conjunctiva, no nystagmus. EARS: Hearing grossly intact. Ear canals and tympanic membranes are within normal limits. MOUTH: Oropharynx within normal limits. NECK: Supple, trachea is midline, no adenopathy, no JVD, no carotid bruit, no c- spine tenderness, neck with full ROM. CHEST: Symmetric, no tenderness at palpation LUNGS: Clear to auscultation bilaterally. No wheezing or crackles. CVS: Regular rate and rhythm, S1 and S2 present, no murmurs or gallops appreciated. ABDOMEN: Soft, non-tender. No signs of distention. No rebound no guarding, and no masses palpated. Bowel sounds are normal. EXTREMITIES: FROM in all major joints, no edema, no cyanosis or clubbing. NEURO: Alert and oriented x 3. No acute neurological deficits. Speech is normal and follows commands. SKIN: Dry and warm PSYCH: Depressed, quiet, stoic and blank gaze. He endorses suicidal thoughts without plan. No homicidal thoughts or plan. No signs of psychosis or pressure speech. No tangential speech. Triage Information Reviewed: Yes Vital Signs On Initial Exam: Initial Vitals Temp Pulse Resp BP Pulse Ox 97.6 F 127 18 134/96 96 07/26/18 15:06 07/26/18 15:06 07/26/18 15:06 07/26/18 15:06 07/26/18 15:06 Vital Signs Reviewed: Yes Diagnostics - Vital Signs Vital Signs Temp Pulse Resp BP Pulse Ox 01/17/19 15:06 97.6 F 127 18 134/96 96 - Laboratory Result Diagrams: 07/26/18 15:53 07/26/18 15:53 Lab Statement: Any lab studies that have been ordered have been reviewed, and results considered in the medical decision making process. Re-Evaluation - Re-Evaluation First Eval Re-Evaluation Time: 15:44 Comment: Patient is medically cleared for MHE. Course/Dx - Course Assessment/Plan: Patient is a 48 y/o M presenting to ED with complaints of SI w/ o plan. Father is present in the room. Patient was admitted 07/12/17 to [facility] after he put a gun in his mouth and had thoughts of dying by suicide. He was discharged to home yesterday, father was told that patient can be left by himself. Father states that patient has not eaten since 1600 yesterday. When father went to see patient at 1100 today, he states that the patient expressed SI w/o plan. Father reports PMHx of MS. Patient also has a blood clot in left lower lung that was found on admission. Patient is on Xarelto for blood clot. On triage, pain denied, nothing is noted to aggravate/alleviate Sx. Home medication and allergies. Blood work w/o a significant abnormality. He is medically cleared. He is awaiting for a MHE. Patient is hemodynamically stable and A+O x 3. Patient will be signed out to Dr. Hu at shift change. - Differential Dx/Clinical Impression Differential Diagnosis/HQI/PQRI: Positive: Depression, Suicidal Ideation Provider Diagnosis: Depression Discharge - Sign-Out/Discharge Documenting (check all that apply): Sign-Out Patient Signing out patient TO: Odell Hu Receiving patient FROM: Anthony Osei - Discharge Plan Condition: Stable Referrals: No Primary Care Phys,NOPCP [Primary Care Provider] - - Attestation Statements Document Initiated by Scribe: Yes Documenting Scribe: ROMEL WEBB Provider For Whom Scribe is Documenting (Include Credential): ANTHONY OSEI MD Scribe Attestation: ROMEL Yeung , scribed for ANTHONY OSEI MD on 07/26/18 at 1813. Status of Scribe Document: Ready
[2018-07-26] MEDS ORDERED: Rivaroxaban TAB(*) 15 MG PO ONE (15:38)
[2018-07-26 16:06] LABS: ABS Basophils 0.1 10^3/ul (0-0.2); ABS Eosinophils 0.2 10^3/ul (0-0.6); ABS Monocytes 0.4 10^3/ul (0-0.8); ABS Neutrophils 2.8 10^3/ul (1.5-7.7); ABS Nucleated RBC 0 10^3/ul; Eosinophil % 3.7 %; Hematocrit 44 % (42-52); Hemoglobin 14.7 g/dl (14.0-18.0); Lymphocyte % 22.4 %; Mean Corpuscular HGB Conc 33 g/dl (31-36); Mean Corpuscular Hemoglobin 28 pg (27-31); Mean Corpuscular Volume 83 fL (80-94); Nucleated Red Blood Cells % 0; Platelet Count 241 10^3/ul (150-450); Red Cell Distribution Width 14 % (10.5-15); White Blood Count 4.4 10^3/ul (3.5-10.8)
[2018-07-26 16:20] LABS: ALT 24 U/L (7-52); AST 22 U/L (13-39); Albumin 4.3 g/dL (3.2-5.2); Albumin/Globulin Ratio 1.4 (1-3); Alkaline Phosphatase 66 U/L (34-104); Anion Gap 7 mmol/L (2-11); Blood Urea Nitrogen 17 mg/dL (6-24); CO2 Carbon Dioxide 29 mmol/L (22-32); Calcium 9.5 mg/dL (8.6-10.3); Chloride 102 mmol/L (101-111); EGFR African American 96.5 (>60); EGFR Non-African American 79.8 (>60); Glucose 122 mg/dL (70-100); Sodium 138 mmol/L (135-145); Total Protein 7.3 g/dL (6.4-8.9)
[2018-07-26 16:36] LABS: Acetaminophen < 15 mcg/mL; Alcohol < 10 mg/dL (<10); Salicylate < 2.50 mg/dL (<30)
[2018-07-26 16:51] LABS: TSH (Thyroid Stimulating Horm) 0.66 mcIU/mL (0.34-5.60)
--- NOTE | 2018-07-26 19:14 | ED ---
Progress - Progress Note Progress Note: Patient was signed out from Dr. Osei to Dr. Hu upon provider shift change pending mental health evaluation. - Results/Orders Results/Orders: EKG at 20:19 reveals sinus tachycardia at 129 bpm with non-specific T wave changes Re-Evaluation - Re-Evaluation First Eval Re-Evaluation Time: 15:44 Comment: Patient is medically cleared for MHE. Course/Dx - Course Course Of Treatment: Patient was signed out from Dr. Osei to Dr. Hu upon provider shift change pending mental health evaluation. [place] [facility] [place] Patient is agreeable with this plan. - Diagnoses Provider Diagnoses: Major depression - Provider Notifications Discussed Care Of Patient With: Eliud Awad Time Discussed With Above Provider: 20:10 Instructed by Provider To: Admit As Inpatient Discharge - Sign-Out/Discharge Documenting (check all that apply): Patient Departure - [place] [facility] [place]ceiving Sign-Out Receiving patient FROM: Anthony Osei - Discharge Plan Condition: Stable Disposition: ADMITTED TO [facility] - Billing Disposition and Condition Condition: STABLE Disposition: Admitted to [facility] - Attestation Statements Document Initiated by Scribe: Yes Documenting Scribe: Isela Guajardo Provider For Whom Scribe is Documenting (Include Credential): Odell Hu MD Scribe Attestation: Isela Yeung scribed for Odell Hu MD on 07/27/18 at 0533. Scribe Documentation Reviewed: Yes Provider Attestation: The documentation as recorded by the scribeIsela accurately reflects the service I personally performed and the decisions made by Brittanie savage MD Status of Scribe Document: Viewed
[2018-07-26] MEDS ORDERED: ALPRAZolam TAB* 0.5 MG PO ONE (20:26)
[2018-07-26] MEDS ORDERED: traZODone TAB* 50 MG TAB PO ONE (20:26)
[2018-07-26] MEDS ORDERED: Metoprolol Tartrate TAB* 25 MG PO ONE (20:27)
[2018-07-26] MEDS ORDERED: Acetaminophen TAB* 325 MG PO PRN (22:47)
[2018-07-26] MEDS ORDERED: Al Hydrox/Mg Hydrox/Simet LIQ* 30 ML UDC PO PRN (22:48)
[2018-07-27] MEDS ORDERED: DULoxetine DR CAP* 60 MG CAP.DR PO SCH (09:00)
[2018-07-27] MEDS: Multivitamins/Minerals TAB PO SCH (09:49)
[2018-07-27] MEDS: amLODIPine TAB* 5 MG PO SCH (09:49)
[2018-07-27] MEDS: Lisinopril TAB* 10 MG PO SCH (09:50)
[2018-07-27] MEDS: Metoprolol Tartrate TAB* 50 mg PO SCH (09:50)
[2018-07-27] MEDS: Diltiazem CD CAP* 240 MG PO SCH (09:51)
[2018-07-27] MEDS: Rivaroxaban TAB(*) 15 MG PO SCH (09:51)
[2018-07-27] MEDS ORDERED: LORazepam TAB(*) 1 MG PO PRN (12:51)
--- NOTE | 2018-07-27 15:05 | HP ---
PSYCHIATRIC HISTORY AND PHYSICAL: DATE OF ADMISSION: 07/26/18 JUSTIFICATION FOR ADMISSION: The patient is in need of 24-hour supervision and care secondary to suicidal ideations. CHIEF COMPLAINT: "I just did not feel good being there". HISTORY OF PRESENT ILLNESS: The patient is a 48-year-old single, never while male with a history of recurrent psychotic depression who was just discharged 1 day previously on the 07/25/18, who now returns being brought in by his family due to concerns that he was not carrying for himself, not taking medications, eating or drinking and that his suicidal ideations had returned. In our emergency room, he presented as very sad, slow thinking, made no eye contact, was slow to respond. He did admit feeling suicidal, but denied having any specific plan. When I met him on the unit his father and step-mother where there. His step-mother indicates that after discharge she brought him to [facility] to molded goods spot picker his medications and some groceries and then he seemed alert and oriented, but seemed dizzy and came close to falling. She dropped him off at home and the next day when they returned they discovered that he had not taken medication, had not fed himself, and was lying in his bed starring at the ceiling. At that time, they decided to return him to hospital. For further psychiatric history please refer to this clinician psychiatric H and P, which was dictated on the 07/13/18. MENTAL STATUS EXAM: The patient is a middle-aged balding white male with limited grooming, who is dressed in blue patient's scrubs, who is sitting in the dinning area starring out the window. He is minimally socially interactive , makes no spontaneous speech, but will answer questions in a brief, nondescriptive way. Mood appears to be depressed with a constricted affect. Thought process is linear, goal directed, although with a slow rate, thought content showed some impoverishment. He is endorsing passive suicidal ideations but denies homicidality. He denies auditory or visual hallucinations. Insight and judgment are fair given his willingness to come back to the hospital. Cognitively, he is awake and alert with what would be appear to be an average intellect. DIAGNOSES: [place] I: Major depressive disorder, recurrent, severe with psychotic features. [place] II: Deferred. IMPRESSION: The patient is a 48-year-old single, never white male with a history of recurrent psychotic depression, who was just discharged from our unit 2 days ago, who now returns with continued depressed symptoms, inability to care for himself and passive suicidal ideation. PLAN: The patient is readmitted to the adult behavioral science unit where he was placed on q.15 minutes checks for his own safety. We will resume aripiprazole at 15 mg p.o. q.h.s., dose and increase duloxetine from 60 mg to 90 mg daily. In addition he will be replaced on his extensive regimen on antihypertensive medications as well as twice daily Xarelto, which was recently started for a pulmonary embolus. It is notable that the patient does have a history of multiple sclerosis in the remote past. I think at this point we should check an MRI of his brain with and without contrast to make sure there is no active demyelinating process. While he is here, he is certainly encouraged to avail himself of all milieu and group psychotherapies and we will be reconnecting him with [facility] at his time of discharge from this facility. [id number]/[facility] #: [id number] DIANA
[2018-07-27] MEDS ORDERED: Gadoteridol* (CONTRAST) 279.3 MG/ML 10 ML IV ONE (18:19)
--- NOTE | 2018-07-27 21:34 | PN ---
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 Patient is described as "alert and oriented to person, place, time, and situation. Patient calm, cooperative, and pleasant during interactions." per RN. Contacted [facility] RN and suggested Hospitalist or Neurology consult in AM, or sooner if any change in condition.
[2018-07-28] MEDS: ARIPiprazole TAB* 15 MG PO SCH ×2 (02:36→21:46)
[2018-07-28] MEDS: Metoprolol Tartrate TAB* 50 mg PO SCH ×3 (02:36→21:46)
[2018-07-28] MEDS: Rivaroxaban TAB(*) 15 MG PO SCH ×3 (02:36→21:46)
[2018-07-28] MEDS: Multivitamins/Minerals TAB PO SCH (09:55)
[2018-07-28] MEDS: Lisinopril TAB* 10 MG PO SCH (09:55)
[2018-07-28] MEDS: Diltiazem CD CAP* 240 MG PO SCH (09:55)
[2018-07-28] MEDS: DULoxetine DR CAP* 30 MG CAP.DR PO SCH (09:55)
[2018-07-28] MEDS: amLODIPine TAB* 5 MG PO SCH (09:56)
[2018-07-29] MEDS: Diltiazem CD CAP* 240 MG PO SCH (10:52)
[2018-07-29] MEDS: amLODIPine TAB* 5 MG PO SCH (10:52)
[2018-07-29] MEDS: Metoprolol Tartrate TAB* 50 mg PO SCH ×2 (10:52→21:46)
[2018-07-29] MEDS: Lisinopril TAB* 10 MG PO SCH (10:52)
[2018-07-29] MEDS: Multivitamins/Minerals TAB PO SCH (10:52)
[2018-07-29] MEDS: Rivaroxaban TAB(*) 15 MG PO SCH ×2 (10:52→21:46)
[2018-07-29] MEDS: DULoxetine DR CAP* 30 MG CAP.DR PO SCH (10:52)
--- NOTE | 2018-07-29 18:52 | PN ---
Subjective - Subjective Date of Service: 07/28/18 Service Type: 64321 Hosp care 15 min low complexity Plan - Plan Treatment Plan: Name: STEPHANIE POLANCO Birthdate: 1970 [id number] Medications: Current Medications Acetaminophen (Tylenol Tab*) 650 mg PO Q4H PRN PRN Reason: PAIN; OR TEMP > 101 Al Hydrox/Mg Hydrox/Simethicone (Maalox Plus*) 30 ml PO Q4H PRN PRN Reason: INDIGESTION Amlodipine Besylate (Norvasc Tab*) 10 mg PO DAILY [facility] Last Admin: 07/29/18 10:52 Dose: 10 mg Aripiprazole (Abilify Tab*) 15 mg PO BEDTIME [facility] Last Admin: 07/28/18 21:46 Dose: 15 mg Diltiazem HCl (Cardizem Cd Cap*) 240 mg PO DAILY [facility] Last Admin: 07/29/18 10:52 Dose: 240 mg Duloxetine HCl (Cymbalta Cap*) 90 mg PO DAILY [facility] Last Admin: 07/29/18 10:52 Dose: 90 mg Lisinopril (Prinivil Tab*) 10 mg PO DAILY [facility] Last Admin: 07/29/18 10:52 Dose: 10 mg Lorazepam (Ativan Tab(*)) 2 mg PO Q6H PRN PRN Reason: ANXIETY Metoprolol Tartrate (Lopressor Tab*) 50 mg PO BID [facility] Last Admin: 07/29/18 10:52 Dose: 50 mg Multivitamins/Minerals (Theragran/Minerals Tab*) 1 tab PO DAILY [facility] Last Admin: 07/29/18 10:52 Dose: 1 tab Rivaroxaban (Xarelto(*)) 15 mg PO BID [facility] Stop: 08/02/18 08:59 Last Admin: 07/29/18 10:52 Dose: 15 mg
--- NOTE | 2018-07-29 19:05 | PN ---
Progress Note - Progress Note Date of Service: 07/28/18 Note: Naman has been seclusive mostly in bed. However offered no complaints when asked. Although there was an abnormal MRI report he continues to deny any physical symptom. Hospitalist consulted and there was no new medical recommentations. We will continue to monitor. He denied any psychotic, manic or depressive symptoms. He is alert and oriented to time, place and person. Denies SI or HI. Plan is to monitor pt. closely both medically and psychiatrically.
[2018-07-29] MEDS: ARIPiprazole TAB* 15 MG PO SCH (21:46)
[2018-07-30] MEDS: amLODIPine TAB* 5 MG PO SCH (10:03)
[2018-07-30] MEDS: Diltiazem CD CAP* 240 MG PO SCH (10:03)
[2018-07-30] MEDS: Metoprolol Tartrate TAB* 50 mg PO SCH ×2 (10:03→20:57)
[2018-07-30] MEDS: Multivitamins/Minerals TAB PO SCH (10:03)
[2018-07-30] MEDS: Lisinopril TAB* 10 MG PO SCH (10:03)
[2018-07-30] MEDS: Rivaroxaban TAB(*) 15 MG PO SCH ×2 (10:04→20:56)
[2018-07-30] MEDS: DULoxetine DR CAP* 30 MG CAP.DR PO SCH (10:04)
--- NOTE | 2018-07-30 12:23 | PN ---
Subjective - Subjective Date of Service: 07/30/18 Service Type: 02452 Hosp care 15 min low complexity Subjective: Naman is euthymic but still isolative to his room with vegetative symptoms. His MRI revealed some white matter abnormalities and I have asked Neurology to see him. He denies SI. Objective - Appearance Appearance: Well Developed/Nourished Dysmorphic Features: No Hygiene: Normal Grooming: Fairly Well Kept - Behavior Psychomotor Activities: Abnormal-Decreased Exhibits Abnormal Movement: No - Attitude and Relatedness Attitude and Relatedness: Withdrawn Eye Contact: Fair - Speech Quality: Unpressured Latencies: Long Quantity: Terse - Mood Patient's Decription of Mood: "Okay" - Affect Observed Affect: Fair Affect Consistent with: Euthymia - Thought Process Patient's Thought Process: Coherent, Impoverished Thought Content: No Passive Wish, No Suicidal Planning, No Homicidal Ideation, No Paranoid Ideation - Sensorium Experiencing Hallucinations: No, Sensorium is Clear Type of Hallucinations: Visual: No, Auditory: No, Command: No - Level of Consciousness Level of Consciousness: Alert Orientation: Yes Intact, Yes Orientated to Time, Yes Orientated to Place, Yes Orientated to Person - Impulse Control Impulse Control: Tenuous - Insight and Judgement Insight and Judgement: Fair - Group Participation Particating in Group Activities: No - Medication Management Medication Management Adherence: Yes Assessment - Assessment Merits Inpatient Hospitalization: For Immediate Safety, For Stabilization Inpatient DSM-V Dx: F33.3 Clinical Impression: 48 y.o. single, never , employed, white male with a history of recurrent psychotic depression returns to the hospital after being discharged from the [facility] on Monday (07/25) due to resumption of suicidal ideations. [facility]: Problem List - Patient Problems (1) Severe recurrent major depressive disorder with psychosis Current Visit: No Status: Acute Priority: High Code(s): F33.3 - MAJOR DEPRESSV DISORDER, RECURRENT, SEVERE W PSYCH SYMPTOMS SNOMED Code(s): 664402896 Plan - Plan Treatment Plan: Name: NAMAN POLANCO Birthdate: 1970 [id number] The patient is on aripiprazole 15mg PO qhs and duloxetine 90mg PO qday. He has medical comorbidities of malignant hypertension, acute pulmonary embolus and remote history of multiple sclerosis. MRI of brain (07/27) reveals extensive white matter abnormalities. I have asked Neurology to evaluate him. Continue inpatient treatment. Continued Medication Management: Start Medication Medications: Current Medications Acetaminophen (Tylenol Tab*) 650 mg PO Q4H PRN PRN Reason: PAIN; OR TEMP > 101 Al Hydrox/Mg Hydrox/Simethicone (Maalox Plus*) 30 ml PO Q4H PRN PRN Reason: INDIGESTION Amlodipine Besylate (Norvasc Tab*) 10 mg PO DAILY [facility] Last Admin: 07/30/18 10:03 Dose: 10 mg Aripiprazole (Abilify Tab*) 15 mg PO BEDTIME [facility] Last Admin: 07/29/18 21:46 Dose: 15 mg Diltiazem HCl (Cardizem Cd Cap*) 240 mg PO DAILY [facility] Last Admin: 07/30/18 10:03 Dose: 240 mg Duloxetine HCl (Cymbalta Cap*) 90 mg PO DAILY [facility] Last Admin: 07/30/18 10:04 Dose: 90 mg Lisinopril (Prinivil Tab*) 10 mg PO DAILY [facility] Last Admin: 07/30/18 10:03 Dose: 10 mg Lorazepam (Ativan Tab(*)) 2 mg PO Q6H PRN PRN Reason: ANXIETY Metoprolol Tartrate (Lopressor Tab*) 50 mg PO BID [facility] Last Admin: 07/30/18 10:03 Dose: 50 mg Multivitamins/Minerals (Theragran/Minerals Tab*) 1 tab PO DAILY [facility] Last Admin: 07/30/18 10:03 Dose: 1 tab Rivaroxaban (Xarelto(*)) 15 mg PO BID [facility] Stop: 08/02/18 08:59 Last Admin: 07/30/18 10:04 Dose: 15 mg - Discharge Plan Discharge Plan: Inpatient Hospitalization Lab Results - Lab Results Lab Results: 07/29/18 07/29/18 06:59 06:59 Hemoglobin A1c 5.9 H Triglycerides 85 Cholesterol 161 LDL Cholesterol 97 HDL Cholesterol 47.0
[2018-07-30] MEDS: ARIPiprazole TAB* 15 MG PO SCH (20:56)
--- NOTE | 2018-07-31 03:33 | CONS ---
NEUROLOGY CONSULTATION NOTE: DATE OF CONSULT: 07/30/18 CONSULTING PROVIDER: Dr. Eliud Awad. REASON FOR CONSULT: Abnormal MRI. CHIEF COMPLAINT: "I wanted to end my life." HISTORY OF PRESENT ILLNESS: Mr. Kamara is a 48-year-old man with a past medical history of hypertension, depression, dyslipidemia, multiple previous inpatient psychiatric hospitalization for severe depression and suicidal ideation. The patient presented to [facility] on 07/08/18 with suicidal ideation. The patient was hospitalized for a few days and was overall stabilized. He had hypertensive urgency and required multiple antihypertensive agents to reduce his blood pressure. He stated that he has been off his lisinopril for months. He was admitted to the inpatient psychiatric unit on 10/26. He was diagnosed with major depressive disorder, recurrent, severe, with psychotic features. He was resumed on Cymbalta and aripiprazole. He was discharged on 07/25/18 from the most recent hospitalization. According to Mr. Kamara (the patient's dad), the patient went home and was sleeping for more than 13 hours a day. He was refusing to get out of bed. He was not taking any oral intake. The patient came back and was readmitted to the inpatient psychiatric unit on 07/26/18 due to not feeling well at home and continued to have suicidal ideation. An MRI of the brain with and without contrast was obtained and I personally reviewed the results. There are multiple cystic appearing lesions, T1 holes mostly in the subcortical and periventricular area with superimposed T2 hyperintensity and white matter disease throughout the same regions. He has also cystic appearing lesions in the corpus callosum. The patient has septum pellucidum cavum. I reviewed the history from 2010. The patient apparently was having similar manifestations and required hospitalization at that time. He was seen by Dr. Carcamo. According to the family, the patient was diagnosed with multiple sclerosis [place] [address] Graham. He had MRI of the brain at that time, which I do not have the results. The MRI of the brain showed these cystic lesions. The MRI was repeated in 2010 which showed the same abnormality that we are currently seeing in the most recent study. The patient denied any focal weakness or paresthesias. 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 He does not use any glasses. He denied ever having any stroke-like symptoms. 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 However, this is just recently during the same time where he had his psychiatric breakdown. The patient stated that the reason he is here is because he wanted to kill himself. He does not feel suicidal at this time. His brother has a shotgun and he was planning to use it. When asked why he was thinking this way, he stated that he had many problems at home. He has a new tenant compliance vice president in the [employer], who is trying to raise the rent. He is in the process of moving from the [employer] home and was just distressed about all of the things that he has to do and thought that taking his life was the easiest way out. He also denied taking his antipsychotic therapy for the last 3 months, although the family stated that he has not taken any medications since 2012. 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 PAST MEDICAL HISTORY: Hypertension, dyslipidemia, and acute pulmonary embolus. MEDICATIONS: 1. Acetaminophen 650 mg p.o. every 4 hours. 2. Maalox 30 mL p.o. every 4 hours. 3. Norvasc 10 mg p.o. daily. 4. Abilify 15 mg p.o. at bedtime. 5. Cardizem 240 mg p.o. daily. 6. Cymbalta 90 mg p.o. daily. 7. Lisinopril 10 mg p.o. daily. 8. Lorazepam 2 mg p.o. every 6 hours for anxiety. 9. Metoprolol 50 mg p.o. twice daily. 10. Rivaroxaban 15 mg p.o. b.i.d. ALLERGIES: No known drug allergies. FAMILY HISTORY: He does not know his family history. SOCIAL HISTORY: The patient lives alone. He does drive. He denied any tobacco or alcohol use. He is not and has no children. He enjoys playing golf in the summer and also enjoys activities such as swimming and bowling. He denied any history of seizures. He denied any developmental delay. The patient's parents are . His mother left his biological father when the patient was 2 years of age. The patient's mother is . The patient's father is actually his stepfather and stepmother who had taken custody since the patient was a child. REVIEW OF SYSTEMS: A 14-point review of systems was obtained and otherwise negative except for what was mentioned in the HPI. PHYSICAL EXAM: Vitals: Temperature 97.7, pulse of 71, respiratory rate of 16, oxygen saturation of 99%, blood pressure of 106/73. The patient is not in any pain. General: A well-nourished man, in no acute distress. HEENT: Normocephalic, atraumatic without any obvious abnormality. Neck is supple and symmetrical with no carotid bruits. Lungs: Clear to auscultation bilaterally, nonlabored breathing. Cardiovascular: Regular rate and rhythm with normal S1, S2. Extremities: Normal range of motion with no cyanosis. Skin: No skin lesions or lacerations. Psych: Flat affect and depressed mood, but easy to establish rapport. Neurological Examination: Mental Status: Awake, alert, and oriented to person, place, time, and general circumstances. Speech and language including expression, naming, repetition, and comprehension were assessed and found to be normal. [place] Cognitive Testing was performed at bedside and the patient scored 26/30 for which he was having trouble drawing a clock with arms placed at 10 past 11, fluency, was having trouble calculating using serial 7s, and was only able to repeat 4 out of 5 words after 5 minutes. Cranial Nerves: Normal confrontation bilaterally. Extraocular muscles are intact. No ptosis. Sensation is intact on the forehead, cheeks, and jaw region bilaterally. No facial droop. He is able to hear throughout the history process. Normal strength against resistance. Tongue is symmetrical and midline with no atrophy or fasciculation. Motor Examination: No abnormal movements or pronator drift. No spasticity. 5/5 strength in the upper and lower extremities bilaterally proximally and distally. Reflexes 2+ throughout with 1 + at the ankles bilaterally. Plantarflexor/flexor, sensation is intact to light touch throughout. Normal vibratory and proprioception at the great toes. Coordination: Normal finger-to- nose and rapid alternating movements. Gait and Station: Narrow based, normal stance and gait. No ataxia. ASSESSMENT AND RECOMMENDATIONS: Mr. Naman Kamara is a 48-year-old man who has an abnormal MRI consisting of periventricular, subcortical, and corpus callosum cystic lesions that are symmetric. These lesions were previously seen in 1997 and 2010. He has no enhancing lesions. He did undergo workup in 2011 for multiple sclerosis with a lumbar puncture reportedly to show no evidence of oligoclonal bands or evidence of demyelinating disease. Clinically, the patient does not have any evidence of multiple sclerosis given the lack of weakness, spasticity, or sensory abnormality. He has no impaired bowel or bladder functions. I would imagine that someone with untreated multiple sclerosis for more than 30 years would probably be wheelchair bound by this time. I am concerned about these abnormalities on the MRI, but not convinced that there is an acute demyelinating process. Patients with neurodegenerative disease can manifest with psychiatric features but typically we would have new enhancing lesions in areas to explain these manifestation. We do not see that in this case. The memory impairment could be a manifestation of his extensive white matter disease with superimposed major depression with psychotic features playing a role. We can try to prevent further progression of these T1 holes by making sure his blood pressure is under control and he takes an aspirin 81 mg daily. This combination of therapy may prevent any progression from small vessel related ischemic changes that could explain these findings. Overall, I do not think this is all related to chronic hypertension, but instead I suspect the patient had some type of infection or hypoxia that may have led to this abnormality (the white matter changes are all in a watershed distribution). Again, I discussed this with the patient's family and I relayed to them that diagnosis of multiple sclerosis is a clinical and radiographic diagnosis and he has no clinical correlation at this time. I suspect his current admission is related to an underlying untreated (prior to the hospitalization) psychiatric condition that may have been provoked with most recent stressors. I did offer the family a second opinion and encouraged them to actually seek out an opinion at a tertiary center like the [facility] or [facility] to see how these lesions could be explained and what will be the long-term complications or manifestation. My biggest concern is cognitive dysfunction, which we are currently seeing at this time, but it is very difficult to assess given the recent acute psychiatric problem. Overall, I do not have any further recommendations. I discussed the above recommendations with Dr. Eliud Awad as well as the patient's family. If not yet obtained, please make sure the patient's TSH and vitamin B12 levels are within normal range (B12>400). Thank you for allowing me to participate in Mr. Kamara's care. TIME SPENT: I spent a total of 75 minutes reviewing the medical chart, obtaining the history, examining the patient, and answering all questions to the best of my ability. [id number]/[facility] #: [id number] DIANA
[2018-07-31] MEDS: Metoprolol Tartrate TAB* 50 mg PO SCH ×2 (09:32→20:16)
[2018-07-31] MEDS: Lisinopril TAB* 10 MG PO SCH (09:32)
[2018-07-31] MEDS: Multivitamins/Minerals TAB PO SCH (09:33)
[2018-07-31] MEDS: Rivaroxaban TAB(*) 15 MG PO SCH ×2 (09:33→20:15)
[2018-07-31] MEDS: amLODIPine TAB* 5 MG PO SCH (09:33)
[2018-07-31] MEDS: Diltiazem CD CAP* 240 MG PO SCH (09:33)
[2018-07-31] MEDS: DULoxetine DR CAP* 30 MG CAP.DR PO SCH (09:34)
--- NOTE | 2018-07-31 11:37 | PN ---
Subjective - Subjective Date of Service: 07/31/18 Service Type: 18967 Hosp care 15 min low complexity Subjective: Naman states that he is better and would like to go home. He remains withdrawn and not participating readily in ADLs without strong encouragement from staff. We have taken the mattress out of his room to coax him into joining the milieu. He denies SI. Objective - Appearance Appearance: Well Developed/Nourished Dysmorphic Features: No Hygiene: Normal Grooming: Fairly Well Kept - Behavior Psychomotor Activities: Normal Exhibits Abnormal Movement: No - Attitude and Relatedness Attitude and Relatedness: Withdrawn Eye Contact: Good - Speech Quality: Unpressured Latencies: Normal Quantity: Terse - Mood Patient's Decription of Mood: "Good" - Affect Observed Affect: Fair Affect Consistent with: Euthymia - Thought Process Patient's Thought Process: Coherent Thought Content: No Passive Wish, No Suicidal Planning, No Homicidal Ideation, No Paranoid Ideation - Sensorium Experiencing Hallucinations: No, Sensorium is Clear Type of Hallucinations: Visual: No, Auditory: No, Command: No - Level of Consciousness Level of Consciousness: Alert Orientation: Yes Intact, Yes Orientated to Time, Yes Orientated to Place, Yes Orientated to Person - Impulse Control Impulse Control: Tenuous - Insight and Judgement Insight and Judgement: Fair - Group Participation Particating in Group Activities: Yes - Medication Management Medication Management Adherence: Yes Assessment - Assessment Merits Inpatient Hospitalization: For Immediate Safety, For Stabilization Inpatient DSM-V Dx: F33.3 Clinical Impression: 48 y.o. single, never , employed, white male with a history of recurrent psychotic depression returns to the hospital after being discharged from the [facility] on Monday (07/25) due to resumption of suicidal ideations. MHU: Problem List - Patient Problems (1) Severe recurrent major depressive disorder with psychosis Current Visit: No Status: Acute Priority: High Code(s): F33.3 - MAJOR DEPRESSV DISORDER, RECURRENT, SEVERE W PSYCH SYMPTOMS SNOMED Code(s): 471486761 Plan - Plan Treatment Plan: Name: NAMAN POLANCO Birthdate: 1970 [id number] The patient is on aripiprazole 15mg PO qhs and duloxetine 90mg PO qday. He has medical comorbidities of malignant hypertension, acute pulmonary embolus and remote history of white matter disease. MRI of brain (07/27) reveals extensive white matter abnormalities. Appreciate Neurology consult. Will discharge him home once we see more spontaneous behavioral activation. Continue inpatient treatment. Continued Medication Management: Continue Outpt Medication Medications: Current Medications Acetaminophen (Tylenol Tab*) 650 mg PO Q4H PRN PRN Reason: PAIN; OR TEMP > 101 Al Hydrox/Mg Hydrox/Simethicone (Maalox Plus*) 30 ml PO Q4H PRN PRN Reason: INDIGESTION Amlodipine Besylate (Norvasc Tab*) 10 mg PO DAILY [facility] Last Admin: 07/31/18 09:33 Dose: 10 mg Aripiprazole (Abilify Tab*) 15 mg PO BEDTIME [facility] Last Admin: 07/30/18 20:56 Dose: 15 mg Diltiazem HCl (Cardizem Cd Cap*) 240 mg PO DAILY [facility] Last Admin: 07/31/18 09:33 Dose: 240 mg Duloxetine HCl (Cymbalta Cap*) 90 mg PO DAILY [facility] Last Admin: 07/31/18 09:34 Dose: 90 mg Lisinopril (Prinivil Tab*) 10 mg PO DAILY [facility] Last Admin: 07/31/18 09:32 Dose: 10 mg Lorazepam (Ativan Tab(*)) 2 mg PO Q6H PRN PRN Reason: ANXIETY Metoprolol Tartrate (Lopressor Tab*) 50 mg PO BID [facility] Last Admin: 07/31/18 09:32 Dose: 50 mg Multivitamins/Minerals (Theragran/Minerals Tab*) 1 tab PO DAILY [facility] Last Admin: 07/31/18 09:33 Dose: 1 tab Rivaroxaban (Xarelto(*)) 15 mg PO BID [facility] Stop: 08/02/18 08:59 Last Admin: 07/31/18 09:33 Dose: 15 mg - Discharge Plan Discharge Plan: Inpatient Hospitalization
[2018-07-31] MEDS: ARIPiprazole TAB* 15 MG PO SCH (20:15)
[2018-08-01] MEDS: amLODIPine TAB* 5 MG PO SCH (09:34)
[2018-08-01] MEDS: Metoprolol Tartrate TAB* 50 mg PO SCH ×2 (09:34→19:48)
[2018-08-01] MEDS: Diltiazem CD CAP* 240 MG PO SCH (09:34)
[2018-08-01] MEDS: Lisinopril TAB* 10 MG PO SCH (09:35)
[2018-08-01] MEDS: Multivitamins/Minerals TAB PO SCH (09:35)
[2018-08-01] MEDS: Rivaroxaban TAB(*) 15 MG PO SCH ×2 (09:35→19:48)
[2018-08-01] MEDS: DULoxetine DR CAP* 30 MG CAP.DR PO SCH (09:35)
--- NOTE | 2018-08-01 11:57 | PN ---
MHU: Group Therapy Note - Service Type Service Type: 22701 Group Psychotherapy - Cognitive Behavioral Group Therapy ( CBT):Patient attended CBT programming this morning and presented with flat affect that did not vary with discussion. Although responsive to direct prompts to respond to questions, patient did not engage in spontaneous conversation.
--- NOTE | 2018-08-01 12:56 | PN ---
Subjective - Subjective Date of Service: 08/01/18 Service Type: 22588 Hosp care 15 min low complexity Subjective: Patient presents as good natured, friendly but with no spontaneous speech and continued social withdrawal from the unit. He continues to require coaxing from the staff to participate in ADLs and group programming. We have resorted to locking his door during milieu programming hours due to the fact that he was laying on his bed even after we had pulled his mattress. He denies SI and requests discharge to home. Objective - Appearance Appearance: Well Developed/Nourished Dysmorphic Features: No Hygiene: Normal Grooming: Fairly Well Kept - Behavior Psychomotor Activities: Normal Exhibits Abnormal Movement: No - Attitude and Relatedness Attitude and Relatedness: Withdrawn Eye Contact: Fair - Speech Quality: Unpressured Latencies: Long Quantity: Terse - Mood Patient's Decription of Mood: "Good" - Affect Observed Affect: Fair Affect Consistent with: Euthymia - Thought Process Patient's Thought Process: Circumstantial, Impoverished Thought Content: No Passive Wish, No Suicidal Planning, No Homicidal Ideation, No Paranoid Ideation - Sensorium Experiencing Hallucinations: No, Sensorium is Clear Type of Hallucinations: Visual: No, Auditory: No, Command: No - Level of Consciousness Level of Consciousness: Alert Orientation: Yes Intact, Yes Orientated to Time, Yes Orientated to Place, Yes Orientated to Person - Impulse Control Impulse Control: Tenuous - Insight and Judgement Insight and Judgement: Fair - Group Participation Particating in Group Activities: No - Medication Management Medication Management Adherence: Yes Assessment - Assessment Merits Inpatient Hospitalization: For Immediate Safety, For Stabilization Inpatient DSM-V Dx: F33.3 Clinical Impression: 48 y.o. single, never , employed, white male with a history of recurrent psychotic depression returns to the hospital after being discharged from the [facility] on Monday (07/25) due to resumption of suicidal ideations. MHU: Problem List - Patient Problems (1) Severe recurrent major depressive disorder with psychosis Current Visit: No Status: Acute Priority: High Code(s): F33.3 - MAJOR DEPRESSV DISORDER, RECURRENT, SEVERE W PSYCH SYMPTOMS SNOMED Code(s): 292014615 Plan - Plan Treatment Plan: Name: STEPHANIE POLANCO Birthdate: 1970 [id number] The patient is on aripiprazole 15mg PO qhs and duloxetine 90mg PO qday. He has medical comorbidities of malignant hypertension, acute pulmonary embolus and remote history of white matter disease. MRI of brain (07/27) reveals extensive white matter abnormalities. Appreciate Neurology consult. Will discharge him home once we see more spontaneous behavioral activation. Continue inpatient treatment. Continued Medication Management: Different Medication Medications: Current Medications Acetaminophen (Tylenol Tab*) 650 mg PO Q4H PRN PRN Reason: PAIN; OR TEMP > 101 Al Hydrox/Mg Hydrox/Simethicone (Maalox Plus*) 30 ml PO Q4H PRN PRN Reason: INDIGESTION Amlodipine Besylate (Norvasc Tab*) 10 mg PO DAILY [facility] Last Admin: 08/01/18 09:34 Dose: 10 mg Aripiprazole (Abilify Tab*) 15 mg PO BEDTIME [facility] Last Admin: 07/31/18 20:15 Dose: 15 mg Diltiazem HCl (Cardizem Cd Cap*) 240 mg PO DAILY [facility] Last Admin: 08/01/18 09:34 Dose: 240 mg Duloxetine HCl (Cymbalta Cap*) 90 mg PO DAILY [facility] Last Admin: 08/01/18 09:35 Dose: 90 mg Lisinopril (Prinivil Tab*) 10 mg PO DAILY [facility] Last Admin: 08/01/18 09:35 Dose: 10 mg Lorazepam (Ativan Tab(*)) 2 mg PO Q6H PRN PRN Reason: ANXIETY Metoprolol Tartrate (Lopressor Tab*) 50 mg PO BID [facility] Last Admin: 08/01/18 09:34 Dose: 50 mg Multivitamins/Minerals (Theragran/Minerals Tab*) 1 tab PO DAILY [facility] Last Admin: 08/01/18 09:35 Dose: 1 tab Rivaroxaban (Xarelto(*)) 15 mg PO BID [facility] Stop: 08/02/18 08:59 Last Admin: 08/01/18 09:35 Dose: 15 mg - Discharge Plan Discharge Plan: Inpatient Hospitalization
--- NOTE | 2018-08-01 16:35 | PN ---
MHU: Group Therapy Note - Service Type Service Type: 48865 Group Psychotherapy - Medication Education Group: Patient attended group and presented with flat affect that did not vary with discussion. Although responsive to direct prompts to respond to questions, patient did not engage in spontaneous conversation.
[2018-08-01] MEDS: ARIPiprazole TAB* 15 MG PO SCH (19:48)
[2018-08-02] MEDS: Metoprolol Tartrate TAB* 50 mg PO SCH ×2 (11:38→20:50)
[2018-08-02] MEDS: Multivitamins/Minerals TAB PO SCH (11:38)
[2018-08-02] MEDS: Diltiazem CD CAP* 240 MG PO SCH (11:38)
[2018-08-02] MEDS: amLODIPine TAB* 5 MG PO SCH (11:38)
[2018-08-02] MEDS: Lisinopril TAB* 10 MG PO SCH (11:38)
[2018-08-02] MEDS: DULoxetine DR CAP* 30 MG CAP.DR PO SCH (11:38)
--- NOTE | 2018-08-02 12:22 | PN ---
Subjective - Subjective Date of Service: 08/02/18 Service Type: 70087 Hosp care 15 min low complexity Subjective: Naman remains abulic but pleasant and euthymic. He has been going to groups, meals and other milieu activities, but usually needs some prompting to do so. He continues to deny SI and would like to go home. He is tolerating his mediations well. Objective - Appearance Appearance: Well Developed/Nourished Dysmorphic Features: No Hygiene: Normal Grooming: Fairly Well Kept - Behavior Psychomotor Activities: Abnormal-Decreased Exhibits Abnormal Movement: No - Attitude and Relatedness Attitude and Relatedness: Withdrawn Eye Contact: Fair - Speech Quality: Unpressured Latencies: Normal Quantity: Terse - Mood Patient's Decription of Mood: "Good" - Affect Observed Affect: Fair Affect Consistent with: Euthymia - Thought Process Patient's Thought Process: Impoverished Thought Content: No Passive Wish, No Suicidal Planning, No Homicidal Ideation, No Paranoid Ideation - Sensorium Experiencing Hallucinations: No, Sensorium is Clear Type of Hallucinations: Visual: No, Auditory: No, Command: No - Level of Consciousness Level of Consciousness: Alert Orientation: Yes Intact, Yes Orientated to Time, Yes Orientated to Place, Yes Orientated to Person - Impulse Control Impulse Control: Tenuous - Insight and Judgement Insight and Judgement: Fair - Group Participation Particating in Group Activities: Yes - Medication Management Medication Management Adherence: Yes Assessment - Assessment Merits Inpatient Hospitalization: Consolidate Improvements, For Discharge Planning Inpatient DSM-V Dx: F33.3 Clinical Impression: 48 y.o. single, never , employed, white male with a history of recurrent psychotic depression returns to the hospital after being [facility] on Monday (07/25) due to resumption of suicidal ideations. BSU: Problem List - Patient Problems (1) Severe recurrent major depressive disorder with psychosis Current Visit: No Status: Acute Priority: High Code(s): F33.3 - MAJOR DEPRESSV DISORDER, RECURRENT, SEVERE W PSYCH SYMPTOMS SNOMED Code(s): 414437614 Plan - Plan Treatment Plan: Name: NAMAN POLANCO Birthdate: 1970 [id number] The patient is on aripiprazole 15mg PO qhs and duloxetine 90mg PO qday. He has medical comorbidities of malignant hypertension, acute pulmonary embolus and remote history of white matter disease. MRI of brain (07/27) reveals extensive white matter abnormalities. Appreciate Neurology consult. Will target tomorrow , Monday, August 03 for discharge to home. Continued Medication Management: Continue Outpt Medication Medications: Current Medications Acetaminophen (Tylenol Tab*) 650 mg PO Q4H PRN PRN Reason: PAIN; OR TEMP > 101 Al Hydrox/Mg Hydrox/Simethicone (Maalox Plus*) 30 ml PO Q4H PRN PRN Reason: INDIGESTION Amlodipine Besylate (Norvasc Tab*) 10 mg PO DAILY [facility] Last Admin: 08/02/18 11:38 Dose: 10 mg Aripiprazole (Abilify Tab*) 15 mg PO BEDTIME [facility] Last Admin: 08/01/18 19:48 Dose: 15 mg Diltiazem HCl (Cardizem Cd Cap*) 240 mg PO DAILY [facility] Last Admin: 08/02/18 11:38 Dose: 240 mg Duloxetine HCl (Cymbalta Cap*) 90 mg PO DAILY [facility] Last Admin: 08/02/18 11:38 Dose: 90 mg Lisinopril (Prinivil Tab*) 10 mg PO DAILY [facility] Last Admin: 08/02/18 11:38 Dose: 10 mg Lorazepam (Ativan Tab(*)) 2 mg PO Q6H PRN PRN Reason: ANXIETY Metoprolol Tartrate (Lopressor Tab*) 50 mg PO BID [facility] Last Admin: 08/02/18 11:38 Dose: 50 mg Multivitamins/Minerals (Theragran/Minerals Tab*) 1 tab PO DAILY [facility] Last Admin: 08/02/18 11:38 Dose: 1 tab - Discharge Plan Discharge Plan: Outpatient Follow Up Outpatient Program[facility]
[2018-08-02] MEDS ORDERED: Rivaroxaban TAB(*) 20 MG TAB PO SCH (18:00)
[2018-08-02] MEDS: ARIPiprazole TAB* 15 MG PO SCH (20:50)
[2018-08-03 10:31] VITALS: BP 124/81
[2018-08-03] MEDS: Multivitamins/Minerals TAB PO SCH (10:31)
[2018-08-03] MEDS: DULoxetine DR CAP* 30 MG CAP.DR PO SCH (10:31)
[2018-08-03] MEDS: Metoprolol Tartrate TAB* 50 mg PO SCH (10:31)
[2018-08-03] MEDS: amLODIPine TAB* 5 MG PO SCH (10:32)
[2018-08-03] MEDS: Diltiazem CD CAP* 240 MG PO SCH (10:32)
[2018-08-03] MEDS: Lisinopril TAB* 10 MG PO SCH (10:32)
--- NOTE | 2018-08-03 21:02 | DS ---
DISCHARGE SUMMARY: DATE OF ADMISSION: 07/26/18 DATE OF DISCHARGE: 08/03/18 DISCHARGE DIAGNOSES: Are as follows: [place] I: Major depressive disorder, recurrent, severe with psychotic features. [place] II: Deferred. CONDITION AT THE TIME OF DISCHARGE: Improved. The patient has been going to groups, taking care of ADLs, taking his medications. He appears to be tolerating them well. I asked him what has changed since his most recent discharge on 07/25/18 and he states that he feels better and he is "more myself. " The patient's stepmother is here at the time of discharge. He feels that he is close to being back to his baseline. The family is looking to take Naman to stay with them for at least a week before allowing him to return to his apartment to make sure that he can continue to do those things that are necessary for independent living. We have granted him documentation to bring to work to get out of returning immediately to employment. The patient works in the [employer] for the [employer]. At this time, the patient is requesting discharge to home, and we feel that he can adequately receive care in the outpatient setting which is far less restrictive than here on the inpatient unit. MENTAL STATUS EXAM AT THE TIME OF DISCHARGE: The patient is a middle-aged balding white male with a stubbly murray who is dressed in white T-shirt and jeans. He is sitting in his bed next to his stepmother. He is socially interactive, smiles. Speech is not spontaneous, however, he does answer questions in a brief, somewhat non-descriptive way. Mood is euthymic with a full affect. Thought process is linear, goal directed. Thought content does show some continued impoverishment. The patient is denying suicidal or homicidal ideations. He denies auditory or visual hallucinations. Insight and judgment are fair given his willingness to follow up in the outpatient setting. Cognitively, he is awake and alert with what would appear to be an average intellect. LABORATORY DATA: Complete metabolic testing was performed on 07/29/18. Hemoglobin A1c was slightly elevated at 5.9%. Triglycerides 85, cholesterol 161 , LDL cholesterol 97, HDL cholesterol 57.0. DISCHARGE INSTRUCTIONS TO THE PATIENT: As follows: Part A. Medications: The patient is on amlodipine 10 mg p.o. daily, aripiprazole 15 mg p.o. q.h.s., Diltiazem CD 240 mg p.o. daily, duloxetine 90 mg p.o. daily, lisinopril 10 mg p.o. daily, metoprolol 50 mg p.o. b.i.d., Xarelto 20 mg p.o. q.h.s. Part B. Diet is regular. Part C. Activities: As tolerated. The patient is a smoker, however, he is declining the offer of continued nicotine replacement therapies. He is offered the [facility] Smokers Quitline at the # in the event that he would like to quit in the future. There are no laboratory or diagnostic studies pending at the time of discharge. Part D. Followup care: The patient will follow up on Monday08/07/18 at the [facility]. His appointment is established for 9:45 a.m. In addition, he will follow up for his medical needs at the [facility] here at [facility]. His appointment with Dr. Keke Abraham will be on Monday08/07/18 at 1:40 p.m. Part E. Substance abuse followup is nonapplicable. HOSPITAL COURSE - PART A: Reason for admission: The patient is a 48-year-old, single, never white male with a history of recurrent psychotic depression who was just discharged one day previously on 07/25/18, who now returns being brought in by his family due to concerns that he was not caring for himself; not taking medications, eating, or drinking; and that his suicidal ideations had returned. In our emergency room, he presented as very sad, slow, making no eye contact, seeming to have impoverished thought, he did admit feeling suicidal but denied having any specific plan. When I met with him on the unit, his father and stepmother were there. His stepmother indicates that after discharge, she brought him to [facility] to bead picker his medications and some groceries and then he seemed alert, oriented, but somewhat dizzy, and at one point came close to falling as they walked in the store. She later dropped him off at his trailer. In the next day when they returned, they discovered that he had not taken his medication, had not fed himself, and was lying in bed starring at the ceiling. At that time, they decided to return to the hospital for further care. HOSPITAL COURSE - PART B: Psychiatric treatment rendered: The patient was readmitted and placed on q.15 minute checks here on the BSU for his own safety. We resumed all of his medications including his Xarelto, his antihypertensives , aripiprazole, and duloxetine. We did later increase duloxetine from 60 to 90 mg daily. Because of the patient's history of alleged white matter disease, we ordered an MRI of his brain which revealed extensive bilateral white matter disease. At that time, we consulted Neurology and the patient was seen by Dr. Pierre Gay. Dr. Gay's impression was that this was not likely to be multiple sclerosis due to the white matter changes being in a watershed distribution. His thinking was that perhaps these where chronic changes that were likely related perhaps to some anoxic brain event during childbirth. Dr. Gay did have a chance to discuss these issues with the patient and with his family, and in the event that they want a second opinion, he referred them to the [facility]'s Neurology Department. While under our care during this hospitalization, Naman continued to be highly isolative and needed frequent prompting to take care of his ADLs and to go to groups. Nevertheless, his affect did improve, his suicidality resolved, and he became brighter and more self-motivated. His parents did not believe that he was fully back to his baseline, but they agreed that his condition had improved enough for them to feel comfortable taking him home with them. He is going to take off some time from work to continue to recuperate, become stronger and more capable of independent living. It is notable that his Xarelto dose at the 3-week period dropped from 15 mg twice daily to 20 mg nightly. He is going to be picking up his updated Xarelto and duloxetine doses from the [facility] when he leaves with his stepmother. At this time, I do not see any rationale for further inpatient treatment. The patient has followups in place both medically and psychiatrically, and he is denying any thoughts of harming himself. [id number]/[facility] #: [id number] [facility]
== END 2018-08-03 13:35 | disposition home or self-care (01) | DRG 751 ==
LOC: ED 15:04 → BSU 21:45
PROVIDERS: ADMIT Psychiatry & Neurology Psychiatry; ATTEND Psychiatry & Neurology Psychiatry
PROC: GZHZZZZ Group Psychotherapy (ICD-10-PCS; principal; 2018-08-01)
DX: F33.3 Major depressive disorder, recurrent, severe with psychotic symptoms (principal); R45.851 Suicidal ideations; E76.3 Mucopolysaccharidosis, unspecified; J30.2 Other seasonal allergic rhinitis; I10 Essential (primary) hypertension; E78.5 Hyperlipidemia, unspecified; G93.0 Cerebral cysts; F17.200 Nicotine dependence, unspecified, uncomplicated; R90.82 White matter disease, unspecified; Z86.711 Personal history of pulmonary embolism; Z79.01 Long term (current) use of anticoagulants
CPT/HCPCS: 36415; 70553; 80053; 80061; 80320; 80329; 82607; 83036; 84443; 85025; 90853; 93005; 99222; 99231; 99238; 99283; A9270-GY; A9579; G0480

== ENCOUNTER 2019-09-02 08:57 | Emergency (ER) | payer BC ==
--- NOTE | 2019-09-02 09:12 | ED ---
Syncope/Near Syncope - HPI Summary HPI Summary: Patient is a 49 y/o M presenting to the ED via EMS for a chief complaint of syncope that occurred at work on 09/02/19. Patient reports feeling lightheadedness that he describes as a head moreno prior to having the syncopal episode. Patient states he bent down, felt lightheaded, stood up and then passed out. Patient reports being asymptomatic prior to the syncopal episode. He is unsure how long he lost consciousness. Patient denies chest pain, shortness of breath, or head injury. No aggravating factors are noted. Patient endorses a history of syncope in the summer of 2018 after being discharged from the [facility] at [facility] for depression. PMHx is significant for depression and HTN. FMHx of HTN, DM, or blood clots is denied. - History Of Current Complaint Chief Complaint: EDSyncope Time Seen by Provider: 09/02/19 09:00 Hx Obtained From: Patient Onset/Duration: Sudden Onset, Resolved Timing: Constant Context: Loss Of Consciousness Activity At Onset: At Rest Associated Head Trauma: No Aggravating Factor(s): Nothing Alleviating Factor(s): Spontaneous Resolution Associated Signs And Symptoms: Lightheadedness - Allergies/Home Medications Allergies/Adverse Reactions: Allergies Allergy/AdvReac Type Severity Reaction Status Date / Time No Known Drug Allergies Allergy See Comment Verified 07/26/18 22:48 Seasonal Allergies Allergy Congestion Uncoded 07/26/18 15:30 Home Medications: Home Medications ARIPiprazole TAB* [Abilify 15 MG TAB*] 15 mg PO BEDTIME tab 08/03/18 [Rx Confirmed 09/02/19] DULoxetine CAP* [Cymbalta CAP*] 90 mg PO DAILY #90 marce. 08/03/18 [Rx Confirmed 09/02/19] Lisinopril TAB* [Prinivil TAB 10 MG*] 10 mg PO DAILY tab 08/03/18 [Rx Confirmed 09/02/19] PMH/Surg Hx/FS Hx/Imm Hx Previously Healthy: Yes Endocrine/Hematology History: Denies: Hx Diabetes, Hx Thyroid Disease Cardiovascular History: Reports: Hx Embolism, Hx Hypertension Denies: Hx Pacemaker/ICD Respiratory History: Reports: Hx Pulmonary Embolism, Hx Seasonal Allergies Denies: Hx Asthma, Hx Chronic Obstructive Pulmonary Disease (COPD) GI History: Denies: Hx Ulcer Sensory History: Denies: Hx Contacts or Glasses, Hx Legally Blind, Hx Deafness, Hx Hearing Aid Opthamlomology History: Denies: Hx Contacts or Glasses, Hx Legally Blind EENT History: Denies: Hx Deafness Psychiatric History: Reports: Hx Anxiety, Hx Depression, Hx Inpatient Treatment , Hx Suicide Attempt, Other Psychiatric Issues/Disorders - unspecified psychosis Denies: Hx Eating Disorder, Hx Panic Disorder, Hx of Violent Episodes Against Others - Surgical History Surgical History: Yes Surgery Procedure, Year, and Place: UMBILICAL HERNIA REPAIR 05/2012. LEFT WRIST SURGERY Infectious Disease History: No Infectious Disease History: Denies: Hx Hepatitis, Hx Human Immunodeficiency Virus (HIV), History Other Infectious Disease, Traveled Outside the [place] in Last 30 Days - Family History Known Family History: Negative: Cardiac Disease, Hypertension, Diabetes, Blood Disorder - Blood clots, Other - Psychiatric illness - Social History Occupation: Employed Full-time Alcohol Use: None Hx Substance Use: No Substance Use Type: Reports: None Hx Tobacco Use: No Smoking Status (MU): Never Smoked Tobacco Review of Systems Negative: Chest Pain Negative: Shortness Of Breath Neurological/Mental Status: Other - Positive lightheadedness, resolved Positive: Syncope - LOC, resolved All Other Systems Reviewed And Are Negative: Yes Physical Exam - Summary Physical Exam Summary: Constitutional: Well-developed, Well-nourished, Alert. (-) Distressed Skin: Warm, Dry HENT: Normocephalic; Atraumatic Eyes: Conjunctiva normal Neck: Musculoskeletal ROM normal neck. (-) JVD, (-) Stridor, (-) Nuchal rigidity Cardio: Rhythm regular, Tachycardia, Heart sounds normal; Intact distal pulses; Radial pulses are 2+ and symmetric. (-) Murmur Pulmonary/Chest wall: Effort normal. (-) Respiratory distress, (-) Wheezes, (-) Rales Abd: Soft, (-) tenderness, (-) Distension, (-) Guarding, (-) Rebound Musculoskeletal: (-) Edema Lymph: (-) Cervical adenopathy Neuro: Alert, Oriented x3 Psych: Mood and affect Normal Triage Information Reviewed: Yes Vital Signs On Initial Exam: Initial Vitals Temp Pulse Resp BP Pulse Ox 96.4 F 88 16 139/103 98 09/02/19 09:01 09/02/19 09:01 09/02/19 09:01 09/02/19 09:01 09/02/19 09:01 Vital Signs Reviewed: Yes Procedures - Sedation Patient Received Moderate/Deep Sedation with Procedure: No Diagnostics - Vital Signs Vital Signs Temp Pulse Resp BP Pulse Ox 09/02/19 09:06 92 11 139/103 99 09/02/19 09:05 88 09/02/19 09:01 96.4 F 88 16 139/103 98 - Laboratory Result Diagrams: 09/02/19 09:22 09/02/19 10:36 Lab Statement: Any lab studies that have been ordered have been reviewed, and results considered in the medical decision making process. - Radiology Chest X-ray Radiology Interpretation Completed By: Radiologist Summary of Radiographic Findings: Chest X-ray IMPRESSION: No radiographic evidence of acute cardiopulmonary disease. Reviewed by Dr. Oliva. - EKG 09:08 Cardiac Rate: NL - 92 BPM EKG Rhythm: Sinus Rhythm ST Segment: Normal Ectopy: None EKG Comparison: No Significant Change - From 07/10/18 Summary of EKG Findings: An EKG at 09:08 reveals normal sinus rhythm with 92 BPM , T wave inversions in lead II and aVF, nml axis, nml intervals. No STEMI. No acute changes. Compared to EKG on 07/10/18, no significant change. ED physician has reviewed and interpreted this EKG. Re-Evaluation - Re-Evaluation First Eval Re-Evaluation Time: 11:15 Change: Improved - Updated patient on lab results, patient feeling better. Will follow-up with PCP Course/Dx Course Of Treatment: 49 y/o male p/w syncopal episode. Syncope. DDx: most likely orthostatic vs vasovagal. also: Seizure: no witnessed seizure activity , incontinence or h/o seizures to suggest seizure today. Hypoxia and hypoglycemia less likely in this patient with normal sats and BG. Cardiac issue : electrical (dysarrhythmias, brugada, WPW, long QT). Less likely given no evidence of drop attack, no palpitations, no EKG findings to predispose to arrhythmias, EKG unchanged from prior. No CP, no STEMI on EKG; NSTEMI unlikely to cause brief cardiogenic shock in absence of other significant findings. Troponin negative x1. Vessels: PE, dissection, AAA. Clinical picture inconsistent, no abd pain, no pulsatile mass, symmetric pulses, no risk factors of PE, d dimer normal. Volume issue: dehydration from vomiting/diarrhea/ decreased PO, sepsis, GI bleed, ruptured ectopic or bleeding AAA. No signs of recent illness to suggest infection, no e/o anemia by history or PE. Neuro: No RAJPUT, no personal or family h/o cerebral aneurysm, nml neuro exam, so this is unlikely ICH or sentinel bleed - Diagnoses Provider Diagnoses: Syncope Discharge ED - Sign-Out/Discharge Documenting (check all that apply): Patient Departure - Discharge - Discharge Plan Condition: Stable Disposition: HOME Patient Education Materials: Syncope (ED) Forms: *Work Release Referrals: Keke Abraham DO [Primary Care Provider] - Additional Instructions: You were seen in the emergency department for a syncopal episode. Your chest x- ray and labs that show caused this. Please follow up with your primary care doctor in next 2-3 days and return to emergency department for repeat passing out, chest pain, worsening or concerning symptoms. It was a pleasure taking care of you today. - Billing Disposition and Condition Condition: STABLE Disposition: Home - Attestation Statements Document Initiated by Nissa: Yes Documenting Scribe: Aurelia Merchant Provider For Whom Nissa is Documenting (Include Credential): Danisha Oliva MD Scribe Attestation: Aurelia Yeung, scribed for Danisha Oliva MD on 09/02/19 at 1127. Scribe Documentation Reviewed: Yes Provider Attestation: The documentation as recorded by the Aurelia escoto accurately reflects the service I personally performed and the decisions made by , Danisha Oliva MD Status of Scribe Document: Viewed
[2019-09-02 09:56] LABS: ABS Basophils 0.1 10^3/ul (0-0.2); ABS Eosinophils 0.2 10^3/ul (0-0.6); ABS Lymphocytes 0.9 10^3/ul (1.0-4.8); ABS Monocytes 0.3 10^3/ul (0-0.8); ABS Neutrophils 2.9 10^3/ul (1.5-7.7); Eosinophil % 4.8 %; Hematocrit 53 % (42-52); Hemoglobin 17.7 g/dL (14.0-18.0); Lymphocyte % 20.2 %; Mean Corpuscular HGB Conc 33 g/dL (31-36); Mean Corpuscular Hemoglobin 29 pg (27-31); Mean Corpuscular Volume 87 fL (80-94); Mean Platelet Volume 8.4 fL (7.4-10.4); Nucleated Red Blood Cells % 0.1; Platelet Count 112 10^3/uL (150-450); Red Blood Count 6.11 10^6 /uL (4.18-5.48); Red Cell Distribution Width 14 % (10-15); White Blood Count 4.4 10^3/uL (3.5-10.8)
--- OUTSIDE RECORDS SUMMARY | 2019-09-02 10:55 | XMS REPORT | Continuity of Care Document ---
:1970 External Reference #:[id number] Author Name Risa Bach Care Team Providers Name Role Phone [facility] - Care Team Information Program Director Substance Abuse Clinic/Center Problems Description No Information Available Social History Type Date Description Comments Sex Unknown Tobacco Use Start: Unknown Patient has never smoked Smoking Status Reviewed: 07/11/19 Patient has never smoked Allergies, Adverse Reactions, Alerts Description No Known Drug Allergies Medications Active Medications SIG Qnty Indications Ordering Provider Date Abilify 1 by mouth every Unknown 15mg Tablets day (pm) Duloxetine HCL 1 by mouth every 30caps Unknown 60mg day Caps DR Norton Lisinopril Take 1 Tablet By 30tabs Keke Abraham, DO 10mg Tablets Mouth Once Daily Immunizations CPT Code Status Date Vaccine Lot # [id number] Given 07/11/2019 Influenza Virus Vaccine, Quadrivalent, Split, [id number] Preservative Free Vital Signs Date Vital Result Comment 07/22/2019 3:59pm BP Systolic 136 mmHg left arm manual BP Diastolic 82 mmHg left arm manual 07/15/2019 3:54pm BP Systolic 150 mmHg 1st BP Diastolic 96 mmHg 1st BP Systolic Sitting 150 mmHg 2nd BP Diastolic Sitting 94 mmHg 2nd Results Test Acquired Date Facility Test Result H/L Range Note Lipid Profile 07/11/2019 [facility] Triglycerides 152 mg/dL 1 (Trig/Chol/HDL) [address] [place], [place] [id number] [phone] Cholesterol 201 mg/dL 2 HDL Cholesterol 54.4 mg/dL 3 LDL Cholesterol 116 mg/dL 4 Basic Metabolic 07/11/2019 [facility] Sodium 141 mmol/L Normal 135-145 Panel [address] [place] [address] [phone] Potassium 4.8 mmol/L Normal 3.5-5.0 Chloride 101 mmol/L Normal 101-111 Co2 Carbon Dioxide 35 mmol/L High 22-32 Anion Gap 5 mmol/L Normal 2-11 Glucose 91 mg/dL Normal 70-100 Blood Urea Nitrogen 12 mg/dL Normal 6-24 Creatinine 0.95 mg/dL Normal 0.67-1.17 BUN/Creatinine Ratio 12.6 Normal 8-20 Calcium 10.1 mg/dL Normal 8.6-10.3 Egfr Non- 84.3 >60 Egfr 102.0 >60 5 Laboratory test 07/11/2019 [facility] Hemoglobin A1c 5.5 % Normal 4.0-5.6 6 finding [address] [place] (Glyco HGB) [place] [address] [phone] TSH (Thyroid Stim Horm) 0.78 mcIU/mL Normal 0.34-5.60 HIV 1&2 p24 07/11/2019 [facility] HIV 4th Nonreactive Nonreactive Screen [address] [place] [address] [phone] Hepatitis C 07/11/2019 [facility] HCV Index 0.03 s/c Antibody [address] [place] [address] [phone] Hepatitis C Antibody Negative Negative Order 07/11/2019 [facility] In-House EKG viewed by Dr. Abraham 1 Desirable: <150 Borderline High: 150-199 High: 200-499 Very High: >500 2 Desirable: <200 Borderline High: 200-239 High: >239 3 Low: <40 Desirable: 40-60 High: >60 4 Desirable: <100 Near Optimal: 100-129 Borderline High: 130-159 High: 160-189 Very High: >189 5 Because ethnic data is not always readily available, this report includes an eGFR for both -Americans and non- Americans. The National Kidney Disease Education Program (NKDEP) does not endorse the use of the MDRD equation for patients that are not between the ages of 18 and 70, are , have extremes of body size, muscle mass, or nutritional status, or are non- or non-. According to the National Kidney Foundation, irrespective of diagnosis, the stage of the disease is based on the level of kidney function: Stage Description GFR(mL/min/1.73 m(2)) 1 Kidney damage with normal or decreased GFR 90 2 Kidney damage with mild decrease in GFR 60-89 3 Moderate decrease in GFR 30-59 4 Severe decrease in GFR 15-29 5 Kidney failure <15 (or dialysis) 6 Therapeutic target for the treatment of diabetes mellitus patients is <7% HBA1C, and in selective patients <6.0%. Please refer to [place] [employer] Association diabetic care guidelines for further information. Procedures Date Code Description Status 07/11/2019 98698 EKG Tracing & Interpretation Completed Medical Devices Description No Information Available Encounters Type Date Location Provider Dx Diagnosis Office Visit 07/11/2019 Coagulation Operator Internal Keke Abraham, I10 Essential ( primary) 11:40a Medicine - Suite DO hypertension R Z23 Encounter for immunization Assessments Date Code Description Provider 07/15/2019 I10 Essential (primary) hypertension Nurse Visit [place] 07/11/2019 I10 Essential (primary) hypertension Keke Abraham DO 07/11/2019 Z23 Encounter for immunization Keke Abraham DO Plan of Treatment 07/11/2019 - Keke Abraham, DOI10 Essential (primary) hypertensionComments: please restart the lisinopril TODAY come in early next week for a nurse visit to check your blood pressureFollow up:early next week for a [place] for a BP check then 6 months with meZ23 Encounter for immunization Functional Status Description No Information Available Mental Status Description No Information Available Referrals Description No Information Available
--- OUTSIDE RECORDS SUMMARY | 2019-09-02 10:55 | XMS REPORT ---
:1970 Author Organization [facility] Care Team Providers Name Role Phone [employer] Primary Care Physician Unavailable Allergies, Adverse Reactions, Alerts Allergy Code CodeSystem Reaction Severity Criticality Status Start Substance Date Moderate Medications Medication Medication Medication Start Stop Route Dose Status Fill Code CodeSystem Date Date Instructions duloxetine 359721 RxNorm 2019-0 oral 60 mg 1 active Take 1 6-05 capsule,d capsule once elayed a day for 30 release(D day(s) R/EC) once a day aripiprazole 969086 RxNorm 2019- oral 15 mg completed for 30 2-13 06-05 tablet day(s) duloxetine 115130 RxNorm 2019- oral 60 mg completed for 30 2-13 06-05 capsule,d day(s) elayed release(D R/EC) metoprolol 895051 RxNorm 2019-0 oral 25 mg active for 30 succinate 3-25 tablet day(s) extended release 24 hr lisinopril 588692 RxNorm 2019-0 oral 10 mg active for 30 3-07 tablet day(s) aripiprazole 158872 RxNorm 20190 oral 15 mg 1 active Take 1 tablet 6-05 tablet once a day once a for 30 day(s) day Problems Problem Name Code CodeSystem Alternate Alternate Start End Status Narrative Code CodeSystem Date Date Severe 01358190 SNOMED-CT Active depressive 3-22 episode with psychotic symptoms Nicotine 60954933 SNOMED-CT Completed dependence, 4-09 unspecified, uncomplicated Relevant diagnostic tests/laboratory data Narrative No Information Procedures Procedure Code CodeSystem Target Date of Status Service Device Device Device Name Site Procedure Delivery Code Name UID Location Psychotherap 450303 SNOMED-CT () 2018-12-05 complete Mental y, 45 04 d Health- minutes with [address], [id number] Office or 865034 SNOMED-CT () 2018-12-12 complete Mental other 7 d Health- outpatient [place] visit for [address], established [id number] patient, [phone] which requires at least 2 of these 3 krishna components: An expanded problem focused history; An expanded problem focused examination; Medical decision making of low Office or 195025 SNOMED-CT () 2018-10-16 complete Mental other 7 d Health- outpatient [place] visit for [address], [facility], established [id number] patient, [phone] which requires at least 2 of these 3 krishna components: An expanded problem focused history; An expanded problem focused examination; Medical decision making of low Office or 458988 SNOMED-CT () 2019-04-03 complete Mental other 7 d Health- outpatient [place] visit for [address], established [id number] patient, [id number] which requires at least 2 of these 3 krishna components: An expanded problem focused history; An expanded problem focused examination; Medical decision making of low Office or 808985 SNOMED-CT () 2019-07-19 complete Mental other 7 d Health- outpatient [place] visit for [address], established [id number] patient, [phone] which requires at least 2 of these 3 krishna components: An expanded problem focused history; An expanded problem focused examination; Medical decision making of low SNOMED-CT () 2019-06-25 complete Mental d Health- [address], [id number] [id number] SNOMED-CT () 2019-07-30 complete Mental d Health- [address], [id number] SNOMED-CT () 2019-05-23 complete Mental d Health[address], [id number] [phone] SNOMED-CT () 2018-10-30 complete Mental d Health[address], [id number] [id number] SNOMED-CT () 2019-01-15 complete Mental d [facility] [address] [place], [place], [id number] SNOMED-CT () 2019-02-21 complete Mental d [facility] [address], [place], [id number] [phone] SNOMED-CT () 2019-03-26 complete Mental d [facility] [address], [place], [id number] [phone] Encounters/Encounter Diagnoses Encounter Name Encounter Diagnosis Diagnosis Diagnosis Date of Service Code Code Name CodeSystem Diagnosis Delivery Location Psychotherapy - 49320 [id number] Severe SNOMED-CT 2019-07-30 Behavioral Individual 30 depressive Health min episode with Clinic [address] [place], [place], [phone] Vital Signs No Information Social History Element Description Description Start End Code CodeSystem AdditionalInfo Date Date SexAssignedAtBirth Male 1970- M AdministrativeGender 0-21 Hospital Discharge Instructions Reason For Referral Medical Equipment FDA Assessments
--- OUTSIDE RECORDS SUMMARY | 2019-09-02 10:55 | XMS REPORT | Continuity of Care Document ---
:1970 External Reference #:[id number] Author Name Keke Abraham DO (transmitted by agent of provider Erika Tijerina) Address [address] [place] [address] Care Team Providers Name Role Phone [facility] - Care Team Information [facility] Problems Description No Information Available Social [...] every 30caps Unknown 60mg day Caps DR Part Lisinopril Take 1 Tablet By 30tabs Keke Abraham DO 10mg Tablets Mouth Once Daily Immunizations Description No Information Available Vital Signs Date Vital Result Comment 07/11/2019 11:24am Height 66 inches 5'6" Weight 176.25 lb Heart Rate 115 /min BP Systolic 155 mmHg 157/110 BP Diastolic 103 mmHg 157/110 Body Temperature 97.5 F O2 % BldC Oximetry 95 % BMI (Body Mass Index) 28.4 kg/m2 10/29/2018 3:27pm Weight 179.00 lb Heart Rate 100 /min BP Systolic 138 mmHg BP Diastolic 90 mmHg Respiratory Rate 16 /min Body Temperature 97.4 F Pain Level 0 O2 % BldC Oximetry 98 % Results Test Acquired Date Facility Test Result H/L Range Note Lipid Profile 07/11/2019 [facility] Triglycerides 152 mg/dL 1 (Trig/Chol/HDL) [address] [place] [address] [phone] Cholesterol 201 mg/dL 2 HDL Cholesterol 54.4 mg/dL 3 LDL Cholesterol 116 mg/dL 4 Basic Metabolic 07/11/2019 [facility] Sodium 141 mmol/L Normal 135-145 Panel [address] [place] [address] [phone] Potassium 4.8 mmol/L Normal 3.5-5.0 Chloride 101 mmol/L Normal 101-111 Co2 Carbon Dioxide 35 mmol/L High 22-32 Anion Gap 5 mmol/L Normal 2-11 Glucose 91 mg/dL Normal 70-100 Blood Urea Nitrogen 12 mg/dL Normal 6-24 Creatinine 0.95 mg/dL Normal 0.67-1.17 BUN/Creatinine Ratio 12.6 Normal 8-20 Calcium 10.1 mg/dL Normal 8.6-10.3 Egfr Non- 84.3 >60 Egfr 102.0 >60 5 Laboratory test 07/11/2019 [facility] Hemoglobin A1c 5.5 % Normal 4.0-5.6 6 finding [address] [facility] (Glyco HGB) [place] [address] [phone] TSH (Thyroid Stim Horm) 0.78 mcIU/mL Normal 0.34-5.60 HIV 1&2 p24 07/11/2019 [facility] HIV 4th Nonreactive Nonreactive Screen [address] [facility] [place] [address] [phone] Hepatitis C 07/11/2019 [facility] HCV Index 0.03 s/c Antibody [address] [place] [address] [phone] Hepatitis C Antibody Negative Negative Order 07/11/2019 [facility] In-House EKG viewed by Dr. Abraham 1 [...] in selective patients <6.0%. Please refer to [employer] diabetic care guidelines for further information. Procedures Date Code Description Status 07/11/2019 90536 EKG Tracing & Interpretation Completed Medical Devices Description No Information Available Encounters Description No Information Available Assessments Date Code Description Provider 07/11/2019 [facility] Essential (primary) hypertension Keke Abraham DO Plan of Treatment Future Appointment(s):01/10/2020 4:00 pm - Keke Abraham DO at [facility] Internal Medicine - Suite 07/11/2019 - Keke Abraham DOI10 Essential (primary) hypertensionComments:please restart the lisinopril TODAY come in early next week for a nurse visit to check your blood pressureFollow up:early next week for a [place] for a BP check then 6 months with pa Functional Status Description No Information Available Mental Status Description No Information Available Referrals Description No Information Available
--- OUTSIDE RECORDS SUMMARY | 2019-09-02 10:55 | XMS REPORT | Continuity of Care Document ---
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 Problems Description No Information Available Social [...] CPT Code Status Date Vaccine Lot # [id number] Given 07/11/2019 Influenza Virus Vaccine, Quadrivalent, Split, [id number] Preservative Free Vital Signs Date Vital Result Comment 07/22/2019 3:59pm BP Systolic 136 mmHg left arm manual BP Diastolic 82 mmHg left arm manual 07/15/2019 3:54pm BP Systolic 150 mmHg 1st BP Diastolic 96 mmHg 1st BP Systolic Sitting 150 mmHg 2nd BP Diastolic Sitting 94 mmHg 2nd Results Test Acquired Date Facility Test Result H/L Range Note Lipid Profile 07/11/2019 [facility] Triglycerides 152 mg/dL 1 (Trig/Chol/HDL) [address] [place], [place] [id number] [phone] Cholesterol 201 mg/dL 2 HDL Cholesterol 54.4 mg/dL 3 LDL Cholesterol 116 mg/dL 4 Basic Metabolic 07/11/2019 [facility] Sodium 141 mmol/L Normal 135-145 Panel [address] [place] [address] [phone] Potassium 4.8 mmol/L Normal 3.5-5.0 Chloride 101 mmol/L Normal 101-111 Co2 Carbon Dioxide 35 mmol/L High 22-32 Anion Gap 5 mmol/L Normal 2-11 Glucose 91 mg/dL Normal 70-100 Blood Urea Nitrogen 12 mg/dL Normal 6-24 Creatinine 0.95 mg/dL Normal 0.67-1.17 BUN/Creatinine Ratio 12.6 Normal 8-20 Calcium 10.1 mg/dL Normal 8.6-10.3 Egfr Non- 84.3 >60 Egfr 102.0 >60 5 Laboratory test 07/11/2019 [facility] Hemoglobin A1c 5.5 % Normal 4.0-5.6 6 finding [address] [facility] (Glyco HGB) [place] [address] [phone] TSH (Thyroid Stim Horm) 0.78 mcIU/mL Normal 0.34-5.60 HIV 1&2 p24 07/11/2019 [facility] HIV 4th Nonreactive Nonreactive Screen [address] [place] [address] [phone] Hepatitis C 07/11/2019 [facility] HCV Index 0.03 s/c Antibody [address] [place] [address] [phone] Hepatitis C Antibody Negative Negative Order 07/11/2019 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 Abraham 1 [...] in selective patients <6.0%. Please refer to [place] [employer] diabetic care guidelines for further information. Procedures Date Code Description Status 07/11/2019 64974 EKG Tracing & Interpretation Completed Medical Devices Description No Information Available Encounters Type Date Location Provider Dx Diagnosis Office Visit 07/11/2019 Facility Worker Internal Keke Abraham, I10 Essential ( primary) 11:40a Medicine - Suite DO hypertension R Z23 Encounter for immunization Assessments Date Code Description Provider 07/15/2019 [facility] Essential (primary) hypertension Nurse Visit [place] 07/11/2019 I10 Essential (primary) hypertension Keke Abraham [...]
[2019-09-02 11:00] LABS: Albumin 4.5 g/dL (3.2-5.2); Albumin/Globulin Ratio 1.4 (1-3); BUN/Creatinine Ratio 19.4 (8-20); Calcium 9.6 mg/dL (8.6-10.3); EGFR African American 104.5 (>60); EGFR Non-African American 86.4 (>60); Globulin 3.2 g/dL (2-4); Total Bilirubin 0.4 mg/dL (0.2-1.0); Total Protein 7.7 g/dL (6.4-8.9)
[2019-09-02 11:31] VITALS: BP 132/103
== END 2019-09-02 11:30 | disposition home or self-care (01) ==
LOC: ED 08:57
DX: R55 Syncope and collapse (principal); R42 Dizziness and giddiness; I10 Essential (primary) hypertension; F41.9 Anxiety disorder, unspecified; F32.9 Major depressive disorder, single episode, unspecified; Z86.711 Personal history of pulmonary embolism; Z79.899 Other long term (current) drug therapy
CPT/HCPCS: 36415; 71046; 80053; 84484; 85025; 85379; 93005; 99283

== ENCOUNTER 2020-03-02 21:11 | Inpatient (IN) ==
[2020-03-02 22:06] LABS: ABS Eosinophils 0.3 10^3/ul (0-0.6); ABS Lymphocytes 1.4 10^3/ul (1.0-4.8); ABS Monocytes 0.5 10^3/ul (0-0.8); Eosinophil % 5.5 %; Hematocrit 40 % (42-52); Hemoglobin 13.8 g/dL (14.0-18.0); Lymphocyte % 26.5 %; Mean Corpuscular HGB Conc 34 g/dL (31-36); Mean Corpuscular Hemoglobin 30 pg (27-31); Mean Corpuscular Volume 87 fL (80-94); Mean Platelet Volume 8.3 fL (7.4-10.4); Nucleated Red Blood Cells % 0.1; Platelet Count 228 10^3/uL (150-450); Red Blood Count 4.65 10^6 /uL (4.18-5.48); Red Cell Distribution Width 14 % (10-15); White Blood Count 5.1 10^3/uL (3.5-10.8)
[2020-03-02 22:23] LABS: ALT 38 U/L (7-52); AST 35 U/L (13-39); Albumin 4.3 g/dL (3.2-5.2); Albumin/Globulin Ratio 1.5 (1-3); Alkaline Phosphatase 75 U/L (34-104); Anion Gap 10 mmol/L (2-11); BUN/Creatinine Ratio 9.5 (8-20); Blood Urea Nitrogen 10 mg/dL (6-24); CO2 Carbon Dioxide 25 mmol/L (22-32); Calcium 9.3 mg/dL (8.6-10.3); Chloride 105 mmol/L (101-111); EGFR African American 90.8 (>60); EGFR Non-African American 75.1 (>60); Globulin 2.8 g/dL (2-4); Glucose 107 mg/dL (70-100); Potassium 3.3 mmol/L (3.5-5.0); Sodium 140 mmol/L (135-145); Total Protein 7.1 g/dL (6.4-8.9)
[2020-03-02 23:07] LABS: Acetaminophen < 15 mcg/mL; Alcohol, S < 10 mg/dL (<10); Salicylate < 2.50 mg/dL (<30)
[2020-03-03 00:54] LABS: Urine Appearance Clear; Urine Bilirubin Negative (Negative); Urine Blood Negative (Negative); Urine Color Yellow; Urine Glucose Negative (Negative); Urine Ketones 1+ (Negative); Urine Nitrite Negative (Negative); Urine Protein Negative (Negative); Urine Specific Gravity 1.015 (1.010-1.030); Urine Urobilinogen Negative (Negative)
[2020-03-03 01:26] LABS: Urine Benzodiazepine Screen None Detected (None Detect); Urine Cannabinoids Screen None Detected (None Detect); Urine Opiates Screen None Detected (None Detect)
[2020-03-03 05:22] LABS: TSH Ultra Thyroid Stim Horm 0.91 mcIU/mL (0.34-5.60)
[2020-03-03] MEDS ORDERED: Al Hydrox/Mg Hydrox/Simet LIQ 30 ML UDC PO PRN (07:51)
[2020-03-03] MEDS: Vitamin THERAPEUTIC TAB PO SCH (10:08)
[2020-03-03] MEDS: DULoxetine DR 60 mg CAP PO SCH (10:08)
[2020-03-04] MEDS: Vitamin THERAPEUTIC TAB PO SCH (08:10)
[2020-03-04] MEDS: DULoxetine DR 60 mg CAP PO SCH (08:10)
[2020-03-05] MEDS: DULoxetine DR 60 mg CAP PO SCH (09:41)
[2020-03-05] MEDS: Vitamin THERAPEUTIC TAB PO SCH (09:41)
[2020-03-06 07:55] LABS: HDL Cholesterol 52.3 mg/dL
[2020-03-06] MEDS: DULoxetine DR 60 mg CAP PO SCH (12:30)
[2020-03-06] MEDS: Vitamin THERAPEUTIC TAB PO SCH (12:30)
[2020-03-07] MEDS: Vitamin THERAPEUTIC TAB PO SCH (09:46)
[2020-03-07] MEDS: DULoxetine DR 60 mg CAP PO SCH (09:46)
[2020-03-08] MEDS: Vitamin THERAPEUTIC TAB PO SCH (09:29)
[2020-03-08] MEDS: DULoxetine DR 60 mg CAP PO SCH (09:29)
[2020-03-09] MEDS: DULoxetine DR 60 mg CAP PO SCH (10:15)
[2020-03-09] MEDS: Vitamin THERAPEUTIC TAB PO SCH (10:16)
[2020-03-10] MEDS: Vitamin THERAPEUTIC TAB PO SCH (09:17)
[2020-03-10] MEDS: DULoxetine DR 60 mg CAP PO SCH (09:18)
[2020-03-11] MEDS: Vitamin THERAPEUTIC TAB PO SCH (08:54)
[2020-03-11] MEDS: DULoxetine DR 60 mg CAP PO SCH (08:54)
[2020-03-12] MEDS: DULoxetine DR 60 mg CAP PO SCH (09:35)
[2020-03-12] MEDS: Vitamin THERAPEUTIC TAB PO SCH (09:35)
[2020-03-13] MEDS: Vitamin THERAPEUTIC TAB PO SCH (11:00)
[2020-03-13] MEDS: DULoxetine DR 60 mg CAP PO SCH (11:00)
[2020-03-14] MEDS: DULoxetine DR 60 mg CAP PO SCH (09:22)
[2020-03-14] MEDS: Vitamin THERAPEUTIC TAB PO SCH (09:23)
[2020-03-15] MEDS: DULoxetine DR 60 mg CAP PO SCH (09:59)
[2020-03-15] MEDS: Vitamin THERAPEUTIC TAB PO SCH (10:00)
[2020-03-16] MEDS: Vitamin THERAPEUTIC TAB PO SCH (09:15)
[2020-03-16] MEDS: DULoxetine DR 60 mg CAP PO SCH (09:15)
[2020-03-17] MEDS: DULoxetine DR 60 mg CAP PO SCH (12:26)
[2020-03-17] MEDS: Vitamin THERAPEUTIC TAB PO SCH (12:28)
[2020-03-18] MEDS: DULoxetine DR 60 mg CAP PO SCH (08:52)
[2020-03-18] MEDS: Vitamin THERAPEUTIC TAB PO SCH (08:53)
[2020-03-19] MEDS: DULoxetine DR 60 mg CAP PO SCH (08:40)
[2020-03-19] MEDS: Vitamin THERAPEUTIC TAB PO SCH (08:41)
[2020-03-20] MEDS: DULoxetine DR 60 mg CAP PO SCH (09:54)
[2020-03-20] MEDS: Vitamin THERAPEUTIC TAB PO SCH (09:55)
[2020-03-21] MEDS: DULoxetine DR 60 mg CAP PO SCH (09:45)
[2020-03-21] MEDS: Vitamin THERAPEUTIC TAB PO SCH (09:45)
[2020-03-22] MEDS: DULoxetine DR 60 mg CAP PO SCH (10:57)
[2020-03-22] MEDS: Vitamin THERAPEUTIC TAB PO SCH (10:57)
[2020-03-23] MEDS: Vitamin THERAPEUTIC TAB PO SCH (09:04)
[2020-03-23] MEDS: DULoxetine DR 60 mg CAP PO SCH (09:04)
[2020-03-23 09:23] VITALS: BP 110/74
== END 2020-03-23 14:05 | disposition home or self-care (01) | DRG 751 ==
LOC: ED 21:11 → BSU 03-03 05:49
PROVIDERS: ADMIT Psychiatry & Neurology Psychiatry; ATTEND Psychiatry & Neurology Psychiatry

== ENCOUNTER 2021-03-18 19:02 | Inpatient (IN) ==
[2021-03-18 19:49] LABS: Urine Appearance Cloudy; Urine Bilirubin Negative (Negative); Urine Blood Negative (Negative); Urine Color Amber; Urine Glucose 1+(50 mg/dL) (Negative); Urine Ketones Trace (Negative); Urine Nitrite Negative (Negative); Urine Protein 1+(30 mg/dL) (Negative); Urine Specific Gravity 1.027 (1.002-1.030); Urine Urobilinogen Negative (Negative)
[2021-03-18 20:00] LABS: Urine Amorphous Crystals Present (Absent); Urine Bacteria 1+ (Absent); Urine Red Blood Cell Trace(0-2/hpf) (Absent); Urine Squamous Epithelial Cell Present (Absent); Urine White Blood Cell Trace(0-5/hpf) (Absent)
[2021-03-18 20:18] LABS: ABS Basophils 0.1 10^3/ul (0-0.2); ABS Eosinophils 0.1 10^3/ul (0-0.6); ABS Monocytes 0.5 10^3/ul (0-0.8); ABS Neutrophils 4.4 10^3/ul (1.5-7.7); Eosinophil % 1.4 %; Hematocrit 47 % (42-52); Hemoglobin 15.8 g/dL (14.0-18.0); Lymphocyte % 17.1 %; Mean Corpuscular HGB Conc 34 g/dL (31-36); Mean Corpuscular Hemoglobin 29 pg (27-31); Mean Corpuscular Volume 85 fL (80-94); Mean Platelet Volume 8.9 fL (7.4-10.4); Nucleated Red Blood Cells % 0.1; Platelet Count 259 10^3/uL (150-450); Red Blood Count 5.51 10^6 /uL (4.18-5.48); Red Cell Distribution Width 14 % (10-15); White Blood Count 6.1 10^3/uL (3.5-10.8)
[2021-03-18 20:44] LABS: ALT 11 U/L (7-52); AST 20 U/L (13-39); Albumin 4.6 g/dL (3.2-5.2); Albumin/Globulin Ratio 1.4 (1-3); Alkaline Phosphatase 89 U/L (35-149); Anion Gap 8 mmol/L (2-11); Blood Urea Nitrogen 14 mg/dL (6-24); CO2 Carbon Dioxide 32 mmol/L (22-32); Chloride 98 mmol/L (101-111); EGFR Non-African American 61.1 (>60); Globulin 3.2 g/dL (2-4); Glucose 110 mg/dL (70-100); Potassium 3.7 mmol/L (3.5-5.0); Sodium 138 mmol/L (135-145); Total Protein 7.8 g/dL (6.4-8.9)
[2021-03-18 20:46] LABS: Urine Benzodiazepine Screen None Detected (None Detect); Urine Cannabinoids Screen None Detected (None Detect); Urine Opiates Screen None Detected (None Detect)
[2021-03-18 20:48] LABS: Alcohol, S < 13 mg/dL (<13); Salicylate < 2.50 mg/dL (<30)
[2021-03-18 20:49] LABS: Acetaminophen < 15 mcg/mL
[2021-03-19 02:57] LABS: Rapid COVID-19 Molecular Undetected (Undetected)
[2021-03-19] MEDS ORDERED: Al Hydrox/Mg Hydrox/Simet LIQ 30 ML UDC PO PRN (03:54)
[2021-03-19] MEDS: Vitamin THERAPEUTIC TAB PO SCH (10:51)
[2021-03-19] MEDS: DULoxetine DR 60 mg CAP PO SCH (10:51)
[2021-03-19] MEDS: DULoxetine DR 30 mg CAP PO SCH (20:07)
[2021-03-20] MEDS: DULoxetine DR 60 mg CAP PO SCH (10:14)
[2021-03-20] MEDS: Vitamin THERAPEUTIC TAB PO SCH (10:14)
[2021-03-20] MEDS: DULoxetine DR 30 mg CAP PO SCH (21:44)
[2021-03-21] MEDS: Vitamin THERAPEUTIC TAB PO SCH (09:15)
[2021-03-21] MEDS: DULoxetine DR 60 mg CAP PO SCH (09:16)
[2021-03-21] MEDS: DULoxetine DR 30 mg CAP PO SCH (21:38)
[2021-03-22] MEDS: Vitamin THERAPEUTIC TAB PO SCH (09:27)
[2021-03-22] MEDS: DULoxetine DR 60 mg CAP PO SCH (09:27)
[2021-03-22] MEDS: DULoxetine DR 30 mg CAP PO SCH (20:00)
[2021-03-23] MEDS: DULoxetine DR 30 mg CAP PO SCH (09:04)
[2021-03-23] MEDS: Vitamin THERAPEUTIC TAB PO SCH (09:05)
[2021-03-24] MEDS: DULoxetine DR 30 mg CAP PO SCH (09:55)
[2021-03-24] MEDS: Vitamin THERAPEUTIC TAB PO SCH (09:56)
[2021-03-25] MEDS: DULoxetine DR 30 mg CAP PO SCH (10:00)
[2021-03-25] MEDS: Vitamin THERAPEUTIC TAB PO SCH (10:00)
[2021-03-26] MEDS: DULoxetine DR 30 mg CAP PO SCH (09:01)
[2021-03-26] MEDS: Vitamin THERAPEUTIC TAB PO SCH (09:01)
[2021-03-27] MEDS: DULoxetine DR 30 mg CAP PO SCH (09:50)
[2021-03-27] MEDS: Vitamin THERAPEUTIC TAB PO SCH (09:50)
[2021-03-28] MEDS: Vitamin THERAPEUTIC TAB PO SCH (09:28)
[2021-03-28] MEDS: DULoxetine DR 30 mg CAP PO SCH (09:28)
[2021-03-29] MEDS: DULoxetine DR 30 mg CAP PO SCH (10:49)
[2021-03-29] MEDS: Vitamin THERAPEUTIC TAB PO SCH (10:50)
[2021-03-30] MEDS: DULoxetine DR 30 mg CAP PO SCH (08:53)
[2021-03-30] MEDS: Vitamin THERAPEUTIC TAB PO SCH (08:54)
[2021-03-30 11:19] VITALS: BP 100/64
== END 2021-03-30 14:20 | disposition home or self-care (01) | DRG 751 ==
LOC: ED 19:02 → BSU 03-19 03:01
PROVIDERS: ADMIT Psychiatry & Neurology Psychiatry; ATTEND Psychiatry & Neurology Psychiatry